=== PATIENT | male | born 1955 | race Caucasian/White ===

== ENCOUNTER 2017-07-29 06:36 | Day surgery (SDC) | payer OTHER ==
[~2017-07-29 06:36] MED LIST: Lactated Ringers 1,000 ML IV SCH; ceFAZolin 2 GM in Premix Bag 1 BAG IV SCH
[2017-07-29] MEDS ORDERED: fentaNYL 250 MCG/5 ML SDV ONE (07:14)
[2017-07-29] MEDS ORDERED: Lidocaine 2% 5 ML SDV ONE (07:14)
[2017-07-29] MEDS ORDERED: Midazolam 1 MG/ML 2 ML SDV ONE (07:14)
[2017-07-29] MEDS ORDERED: Propofol 200 MG/20 ML SDV ONE ×3 (07:14→09:40)
[2017-07-29] MEDS ORDERED: Bupivacaine 25%/EPINEPHrine/PF 30 ML ONE (07:25)
[2017-07-29] MEDS ORDERED: Bupivacaine 0.5% 30 ML SDV ONE (07:25)
[2017-07-29] MEDS ORDERED: Ketorolac 10 MG Tab PO PRN (08:00)
[2017-07-29] MEDS ORDERED: Acetaminophen/HYDROcodone 325-10 MG Tab PO PRN (08:00)
--- NOTE | 2017-07-29 08:19 | PCM.PREANE ---
Preanesthetic Assessment - Procedure Proposed Procedure: Right shoulder arthroscopic repair of torn rotater cuff - Anesthesia/Transfusion/Family Hx Anesthesia History: No Prior Anesthesia Family History of Anesthesia Reaction: No Transfusion History: No Prior Transfusion(s) Intubation History: Unknown Additional History: hypertension -treated with amlodipine and atenolol - Review of Systems Pulmonary: No Symptoms Cardiovascular: Other (HTN - see above) Gastrointestinal: No Symptoms Neurological: No Symptoms Other: Reports: None - Physical Assessment NPO Status Date: 07/28/17 NPO Status Time: 23:00 O2 Sat by Pulse Oximetry: 95 Respiratory Rate: 14 Vital Signs: Last Vital Signs Temp 98.2 F 07/29/17 06:45 Pulse 62 07/29/17 06:45 Resp 14 07/29/17 06:45 BP 158/70 H 07/29/17 06:45 Pulse Ox 95 07/29/17 06:45 Height: 5 ft 11 in Weight: 200 lb ASA Class: 2 Mental Status: Alert & Oriented x3 Airway Class: Mallampati = 1 Dentition: Reports: Normal Dentition Thyro-Mental Finger Breadths: 3 Mouth Opening Finger Breadths: 3 ROM/Head Extension: Full Lungs: Clear to Auscultation, Normal Respiratory Effort Cardiovascular: Regular Rate, Regular Rhythm, No Murmurs - Allergies Allergies/Adverse Reactions: Allergies Allergy/AdvReac Type Severity Reaction Status Date / Time No Known Allergies Allergy Verified 07/28/17 08:58 - Blood Blood Available: No Product(s) Available: None - Anesthesia Plan Pre-Op Medication Ordered: None Beta Jasson: Atenolol Med Last Dose Date: 07/29/17 Med Last Dose Time: 06:00 - Acknowledgements Anesthesia Type Planned: General Anesthesia, Regional Block (discussed probable interscalene block at end case for post op pain relief) Pt an Appropriate Candidate for the Planned Anesthesia: Yes Alternatives and Risks of Anesthesia Discussed w Pt/Guardian: Yes Pt/Guardian Understands and Agrees with Anesthesia Plan: Yes PreAnesthesia Questionnaire Other HEENT History: wears glasses "at night" Cardiovascular History: Reports: Hypertension Psychiatric History: Reports: ADD Other Psychiatric History: has not taken Adderal for over a month - SUBSTANCE USE Smoking Status *Q: Former Smoker Days Per Week of Alcohol Use: 7 Recreational Drug Use History: Yes - HOME MEDS Home Medications: Home Meds Atenolol 50 mg PO DAILY 07/28/17 [History] Hydrochlorothiazide 50 mg PO DAILY 07/28/17 [History] Losartan [Cozaar] 100 mg PO DAILY 07/28/17 [History] Milk Thistle 150 mg PO DAILY 07/28/17 [History] Multivitamin [Multi-Vitamin Daily] 1 tab PO DAILY 07/28/17 [History] amLODIPine [Norvasc] 10 mg PO DAILY 07/28/17 [History] - CURRENT (IN HOUSE) MEDS Current Meds: Current Medications Hydrocodone Bitart/Acetaminophen (Wayne 325-10 Mg) 1 - 2 tab PO Q4H PRN PRN Reason: Pain Cefazolin Sodium/Dextrose 2 gm (/ Premix) 50 mls @ 100 mls/hr IV [facility] Lactated Ringer's (Ringers, Lactated) 1,000 mls @ 100 mls/hr IV ASDIRECTED [facility] Last Admin: 07/29/17 07:24 Dose: 100 mls/hr Ketorolac Tromethamine (Toradol) 10 mg PO Q6H PRN PRN Reason: Pain Stop: 08/03/17 08:01 Discontinued Medications Bupivacaine HCl (Marcaine 0.5%) Confirm Administered Dose 30 ml .ROUTE .STK-MED ONE Stop: 07/29/17 07:26 Fentanyl (Sublimaze) Confirm Administered Dose 250 mcg .ROUTE .STK-MED ONE Stop: 07/29/17 07:15 Bupivacaine HCl/Epinephrine Bitart (Sensorc Mpf 0.25%-Epi 1:[id number]) Confirm Administered Dose 30 mls @ as directed .ROUTE .STK-MED ONE Stop: 07/29/17 07:26 Lidocaine (Xylocaine-Mpf 2%) Confirm Administered Dose 10 ml .ROUTE .STK-MED ONE Stop: 07/29/17 07:15 Midazolam HCl (Versed 1 Mg/Ml) Confirm Administered Dose 2 mg .ROUTE .STK-MED ONE Stop: 07/29/17 07:15 Propofol (Diprivan 20 Ml) Confirm Administered Dose 400 mg .ROUTE .STK-MED ONE Stop: 07/29/17 07:15
[2017-07-29] MEDS ORDERED: HYDROmorphone 2 MG/ML Syringe IVPUSH ONE ×2 (09:16→10:21)
[2017-07-29] MEDS ORDERED: fentaNYL 100 MCG/2 ML SDV IVPUSH PRN ×2 (09:16→10:21)
--- NOTE | 2017-07-29 10:03 | PCM.OPNOTE ---
- General Post-Op/Procedure Note Date of Surgery/Procedure: 07/29/17 Operative Procedure(s): R shoulder scope with SAD, debridement of anterior labrum and RTCR Post-Op Diagnosis: R shoulder impingement, degenerative anterior labral tear, RTC tear Anesthesia Technique: General ET Tube Primary Surgeon: Asiya Josue Cabin Crew: Marry Dhaliwal Condition: Good Free Text/Narrative:: #[id number]
--- NOTE | 2017-07-29 10:39 | PCM.SN ---
- Free Text/Narrative Note: At procedures end inter-scalene block done for post operative pain control after betadine x 3. 2 inch # 22 stimuplex needle stimulationg at 6 ma good forearm twitch instilled 40 ml of 1:1 mixture of 20 ml 0.25% Bupivicaine with epinephrine 1:200k and 20 ml 0.5% Bupivicaine without epinephrine. Patient appears comfortable on arrival recovery room with vital signs in normal limits and patient resting.
--- NOTE | 2017-07-29 10:46 | OR ---
SURGEON: Asiya Josue MD DATE OF PROCEDURE: 07/29/2017 PREOPERATIVE DIAGNOSES: 1. Right shoulder impingement syndrome. 2. Right shoulder rotator cuff tear. POSTOPERATIVE DIAGNOSES: 1. Right shoulder impingement syndrome. 2. Right shoulder rotator cuff tear. 3. Right shoulder degenerative anterior labral tear. 4. DJD right glenohumeral joint PROCEDURE: Right shoulder arthroscopy with: 1. Subacromial decompression with release of coracoacromial ligament and acromioplasty. 2. Limited debridement of anterior labrum. 3. Arthroscopic rotator cuff repair. MORTGAGE PROCESSOR: Marry Dhaliwal PA-C ANESTHESIA: General. ESTIMATED BLOOD LOSS: 10 mL. TOURNIQUET TIME: 0 minutes. COMPLICATIONS: None. DVT PROPHYLAXIS: PAS boots to bilateral lower extremities. IMPLANTS USED: Two Arthrex 4.5 mm corkscrew anchors (Bio[employer]) and one Arthrex 4.75 mm SwiveLock anchor ([employer]). BRIEF HISTORY: Kadeem is a 62-year-old male, who sustained an acute tear of his rotator cuff following a work-related injury. An MRI did confirm a tear of the rotator cuff. Due to the lack of response to conservative treatment, I did recommend surgical intervention. The risks and goals of the procedure were discussed with the patient and were documented preoperatively. He agreed to proceed. DESCRIPTION OF PROCEDURE: The patient was properly identified and brought to the operating room. He was transferred from the OR cart and placed on the operating room table in supine position. General anesthesia was administered. After adequate anesthesia was obtained, the patient was placed into a beach-chair type position. Care was taken to pad all bony prominences. His head was secured. The right upper extremity was then prepped in standard fashion using ChloraPrep solution. It was then sterilely draped. A time-out was performed to ensure correct site and procedure. Preoperative antibiotics were given. The surgical site had been marked preoperatively. Bony landmarks were identified with a marking pen. Approximately 30 mL of normal saline was introduced into the glenohumeral joint. A posterior portal was then established. Blunt trocar and cannula were introduced into the glenohumeral joint. Camera, inflow, and outflow were assembled. The rotator interval showed mild synovitis. An anterior portal was then established. The subscapularis was visualized and probed. It was found to be intact. No loose bodies were present in the subscapular recess. The anterior labrum did show degenerative tearing. This was resected with electrocautery to a stable remnant. The biceps was then inspected. There did not appear to be any tearing. The biceps was pulled into the joint and no longitudinal tears were noted distally. The attachment of the biceps to the labrum appeared intact with no peel back. The posterior labrum appeared intact. The glenoid was then visualized. No degenerative changes were found. The humeral head was also inspected. There was an area measuring approximately 10 mm x 10 mm over the superior aspect of the humeral head that showed nearly grade 4 chondromalacia. This did not appear to be new injury. The remainder of the humeral head showed the cartilage to be intact. I then extended into the axillary pouch. No loose bodies were identified. Mild synovitis was noted. The rotator cuff was then inspected. The bare area was noted posteriorly as the arm was brought into an abducted and externally rotated position. As I progressed forward, there was a full-thickness tear of the anterior portion of the supraspinatus. The arm was then brought back into a neutral position. Instruments were removed from the glenohumeral joint. Blunt trocar and cannula were then introduced into the subacromial space. A lateral portal was established. Using a combination of electrocautery and shaver, an extensive bursectomy was performed. He did have a large amount of bursal tissue. The coracoacromial ligament was released anteriorly. The acromion appeared to be causing some impingement. The 5.0 mm yusuf was then used to perform an acromioplasty. This provided good decompression of the subacromial space. The rotator cuff was then inspected. There was found to be a full-thickness crescentic tear of the anterior portion of the supraspinatus. A cuff grasper was used to reapproximate the cuff to its footprint and there was no significant tension on the cuff. It was able to easily be pulled to its footprint. The 5.0 mm yusuf was then used to roughen the bony surface just lateral to the articular surface for healing. Two 4.5 mm corkscrew anchors were then placed just lateral to the articular surface. Sutures were then passed through the cuff. The cuff tissue was quite robust and of good quality. After the sutures were passed, the sutures were tied in a [id number] fashion pulling the rotator cuff over to its bony footprint. At the completion, the cuff was reapproximated to the footprint. I felt that an additional lateral row would help with compression of the suture on the cuff and a 4.75 mm SwiveLock anchor was placed laterally. Sutures were incorporated into the SwiveLock and this was positioned. I was then able to probe the right rotator cuff. We had a nearly water tight closure. Instruments were then removed from the shoulder. The portal sites were closed with 3-0 nylon. Xeroform gauze was placed over the wound and a bulky dressing was applied. The patient was placed back into a supine position. At the completion of the case, the patient was turned over to the Anesthesia Department for placement of the interscalene block. ADONAY DOE /[id number] MTDD
--- NOTE | 2017-07-29 11:03 | PCM.POSTAN ---
POST ANESTHESIA ASSESSMENT - MENTAL STATUS Mental Status: Alert, Oriented - RESPIRATORY Respiratory Status: Respiratory Rate WNL, Airway Patent, O2 Saturation Stable - CARDIOVASCULAR CV Status: Pulse Rate WNL, Blood Pressure Stable - GASTROINTESTINAL GI Status: No Symptoms - PAIN Pain Score: 0 (Interscalene block functional. See JKO simple note.) - POST OP HYDRATION Hydration Status: Adequate & Stable
--- NOTE | 2017-07-29 12:03 | PCM48HPAN ---
Post Anesthesia Note - EVALUATION WITHIN 48HRS OF ANESTHETIC Vital Signs in Normal Range: Yes Patient Participated in Evaluation: Yes Respiratory Function Stable: Yes Airway Patent: Yes Cardiovascular Function Stable: Yes Hydration Status Stable: Yes Pain Control Satisfactory: Yes (Interscalene block functional) Nausea and Vomiting Control Satisfactory: Yes Mental Status Recovered: Yes
== END 2017-07-29 13:05 | disposition home or self-care (01) ==
LOC: MW.SDS 06:36
PROVIDERS: ATTEND Orthopaedic Surgery
DX: M75.121 Complete rotator cuff tear or rupture of right shoulder, not specified as traumatic (principal); I10 Essential (primary) hypertension; Z79.899 Other long term (current) drug therapy; Z79.1 Long term (current) use of non-steroidal anti-inflammatories (NSAID); M75.41 Impingement syndrome of right shoulder; M24.111 Other articular cartilage disorders, right shoulder; M19.011 Primary osteoarthritis, right shoulder
CPT/HCPCS: 29826; 29827; 88304; C1713; J2250; J3010; J7120; 01630; J2704

== ENCOUNTER 2017-09-06 03:18 | Inpatient (IN) | payer OTHER ==
[2017-09-06] MEDS ORDERED: Pantoprazole 40 MG Vial IVPUSH ONE (03:26)
[2017-09-06] MEDS ORDERED: Sodium Chloride 0.9% 10 ML Syringe FLUSH PRN (03:28)
[2017-09-06] MEDS ORDERED: Aspirin 81 MG Tab.Chew PO ONE ×2 (03:28→03:30)
[2017-09-06] MEDS ORDERED: Sodium Chloride 0.9% 2.5 ML Syringe FLUSH PRN (03:28)
[2017-09-06] MEDS ORDERED: Nitroglycerin 0.4 MG Tab.SL SL PRN (03:30)
[2017-09-06] MEDS: Nitroglycerin 0.4 MG Tab.SL SL PRN ×2 (03:34→03:39)
--- NOTE | 2017-09-06 03:36 | EDM.PDOC ---
ED HPI GENERAL MEDICAL PROBLEM - General Chief Complaint: Abdominal Pain Stated Complaint: STOMACH PAINS Time Seen by Provider: 09/06/17 03:25 - History of Present Illness INITIAL COMMENTS - FREE TEXT/NARRATIVE: HISTORY AND PHYSICAL: History of present illness: Patient 62-year-old male with a history of hypertension presents with concern about epigastric abdominal discomfort that came on somewhat acutely decorticates regarding shortness of breath there's no radiation of this pain he denies melena hematochezia denies chest pressure or diaphoresis Review of systems: As per history of present illness and below otherwise all systems reviewed and negative. Past medical history: As per history of present illness and as reviewed below otherwise noncontributory. Surgical history: As per history of present illness and as reviewed below otherwise noncontributory. Social history: No reported history of drug or alcohol abuse. Family history: As per history of present illness and as reviewed below otherwise noncontributory. Physical exam: HEENT: Atraumatic, normocephalic, pupils reactive, negative for conjunctival pallor or scleral icterus, mucous membranes moist, throat clear, neck supple, nontender, trachea midline. Lungs: Clear to auscultation, breath sounds equal bilaterally, chest nontender. Heart: S1S2, regular, negative for clicks, rubs, or JVD. Abdomen: Soft, protuberant equivocal tenderness in the epigastrium to deep palpation. Negative for masses or hepatosplenomegaly. Negative for costovertebral tenderness. Pelvis: Stable nontender. Genitourinary: Deferred. Rectal: Deferred. Extremities: Atraumatic, negative for cords or calf pain. Neurovascular unremarkable. Neuro: Awake, alert, oriented. Cranial nerves II through XII unremarkable. Cerebellum unremarkable. Motor and sensory unremarkable throughout. Exam nonfocal. Diagnostics: CBC CMP troponin PT/INR chest x-ray EKG lipase Therapeutics: Protonix 80 mg IV aspirin 324 mg nitroglycerin sublingual Impression: 1 epigastric abdominal pain etiology to be determined Definitive disposition and diagnosis as appropriate pending reevaluation and review of above. Middle Abdomen Pain Score (Numeric/FACES): 8 - Related Data Allergies Allergy/AdvReac Type Severity Reaction Status Date / Time No Known Allergies Allergy Verified 09/06/17 03:27 Home Meds: Home Meds Atenolol 50 mg PO DAILY 07/28/17 [History] Hydrochlorothiazide 50 mg PO DAILY 07/28/17 [History] Losartan [Cozaar] 100 mg PO DAILY 07/28/17 [History] Milk Thistle 150 mg PO DAILY 07/28/17 [History] Multivitamin [Multi-Vitamin Daily] 1 tab PO DAILY 07/28/17 [History] amLODIPine [Norvasc] 10 mg PO DAILY 07/28/17 [History] Acetaminophen/HYDROcodone [[place]rh[place] 325-10 MG] 1 - 2 tab PO Q4H PRN #80 tablet [Rx] Ketorolac [Toradol] 10 mg PO Q6H #20 tablet 07/29/17 [Rx] Past Medical History Other HEENT History: wears glasses "at night" Cardiovascular History: Reports: Hypertension Psychiatric History: Reports: ADD Other Psychiatric History: has not taken Adderal for over a month Social & Family History - Tobacco Use Smoking Status *Q: Former Smoker - Alcohol Use Days Per Week of Alcohol Use: 7 - Recreational Drug Use Recreational Drug Use: Yes Drug Use in Last 12 Months: No ED ROS GENERAL - Review of Systems Review Of Systems: ROS reveals no pertinent complaints other than HPI. ED EXAM, GENERAL - Physical Exam Exam: See Below (See dictated) Course - Vital Signs Last Recorded V/S: Last Vital Signs Temp 36.1 C 09/06/17 05:32 Pulse 77 09/06/17 05:32 Resp 18 09/06/17 05:32 BP 160/74 H 09/06/17 05:32 Pulse Ox 99 09/06/17 05:32 - Orders/Labs/Meds Orders: Active Orders 24 hr Category Date Time Status Cardiac Monitoring [RC] . DIRECTED Care 09/06/17 03:27 Active EKG Documentation Completion [RC] STAT Care 09/06/17 03:28 Active EKG Documentation Completion [RC] STAT Care 09/06/17 04:00 Active Oxygen Therapy, ED [RC] ASDIRECTED Care 09/06/17 03:27 Active Abdomen Pelvis w Cont [CT] Stat Exams 09/06/17 04:00 Taken Chest 1V Frontal [CR] Stat Exams 09/06/17 03:28 Taken Chest w Cont [CT] Stat Exams 09/06/17 04:00 Taken Nitroglycerin [Nitrostat] Med 09/06/17 03:28 Active 0.4 mg SL Q5M PRN Sodium Chloride 0.9% [Normal Saline] 1,000 ml Med 09/06/17 04:53 Active IV STAT Sodium Chloride 0.9% [Saline Flush] Med 09/06/17 03:28 Active 10 ml FLUSH ASDIRECTED PRN Sodium Chloride 0.9% [Saline Flush] Med 09/06/17 03:28 Active 2.5 ml FLUSH ASDIRECTED PRN Saline Lock Insert [OM.PC] Stat Oth 09/06/17 03:27 Ordered Medication Orders Sodium Chloride (Normal Saline) 1,000 mls @ 999 mls/hr IV STAT ONE Stop: 09/06/17 05:53 Last Admin: 09/06/17 05:00 Dose: 999 mls/hr Nitroglycerin (Nitrostat) 0.4 mg SL Q5M PRN PRN Reason: Chest Pain Last Admin: 09/06/17 03:39 Dose: 0.4 mg Admin: 09/06/17 03:34 Dose: 0.4 mg Sodium Chloride (Saline Flush) 10 ml FLUSH ASDIRECTED PRN PRN Reason: Keep Vein Open Last Admin: 09/06/17 03:35 Dose: 10 ml Sodium Chloride (Saline Flush) 2.5 ml FLUSH ASDIRECTED PRN PRN Reason: Keep Vein Open Last Admin: 09/06/17 03:35 Dose: 2.5 ml Labs: Laboratory Tests 09/06/17 09/06/17 09/06/17 Range/Units 03:32 03:32 03:32 WBC 13.31 H (4.0-11.0) K/uL RBC 4.71 (4.50-5.90) M/uL Hgb 15.0 (13.0-17.0) g/dL Hct 42.3 (38.0-50.0) % MCV 89.8 (80.0-98.0) fL MCH 31.8 (27.0-32.0) pg MCHC 35.5 (31.0-37.0) g/dL RDW Std Deviation 41.3 (28.0-62.0) fl RDW Coeff of Randall 13 (11.0-15.0) % Plt Count 370 (150-400) K/uL MPV 9.20 (7.40-12.00) fL Neut % (Auto) 67.5 (48.0-80.0) % Lymph % (Auto) 23.6 (16.0-40.0) % [place] % (Auto) 7.5 (0.0-15.0) % Eos % (Auto) 1.0 (0.0-7.0) % Baso % (Auto) 0.4 (0.0-1.5) % Neut # (Auto) 9.0 H (1.4-5.7) K/uL Lymph # (Auto) 3.1 H (0.6-2.4) K/uL [place] # (Auto) 1.0 H (0.0-0.8) K/uL Eos # (Auto) 0.1 (0.0-0.7) K/uL Baso # (Auto) 0.1 (0.0-0.1) K/uL Nucleated RBC % 0.0 /100WBC Nucleated RBCs # 0 K/uL INR 0.95 (0.86-1.11) Sodium 139 (136-146) mmol/L Potassium 3.1 L (3.5-5.1) mmol/L Chloride 98 (98-110) mmol/L Carbon Dioxide 23 (21-31) mmol/L BUN 26 H (6.0-23.0) mg/dL Creatinine 0.8 (0.6-1.5) mg/dL Est Cr Clr Drug Dosing 96.32 mL/min Estimated GFR (MDRD) > 60.0 ml/min Glucose 137 H (60-110) mg/dL Calcium 9.5 (8.8-10.8) mg/dL Total Bilirubin 0.3 (0.1-1.5) mg/dL AST 47 H (5-40) IU/L ALT 73 H (8-54) IU/L Alkaline Phosphatase 139 (40-150) CK-MB (CK-2) 2.0 (0-6.6) ng/ml Troponin I < 0.10 (0.0-0.29) NG/ML B-Natriuretic Peptide (<100) PG/ML Total Protein 8.4 H (6.0-8.0) g/dL Albumin 4.5 (3.4-4.8) g/dL Globulin 3.9 H (2.0-3.5) g/dL Albumin/Globulin Ratio 1.2 L (1.3-2.8) Lipase (7-80) U/L Urine Color Urine Appearance Urine pH (5.0-8.0) Ur Specific Jal (1.001-1.035) Urine Protein (NEGATIVE) mg/dL Urine Glucose (UA) (NEGATIVE) mg/dL Urine Ketones (NEGATIVE) mg/dL Urine Occult Blood (NEGATIVE) Urine Nitrite (NEGATIVE) Urine Bilirubin (NEGATIVE) Urine Urobilinogen (<2.0) EU/dL Ur Leukocyte Esterase (NEGATIVE) Urine RBC (0-2/HPF) Urine WBC (0-5/HPF) Ur Epithelial Cells (NONE-FEW) Urine Bacteria (NEGATIVE) 09/06/17 09/06/17 09/06/17 Range/Units 03:32 03:32 05:20 WBC (4.0-11.0) K/uL RBC (4.50-5.90) M/uL Hgb (13.0-17.0) g/dL Hct (38.0-50.0) % MCV (80.0-98.0) fL MCH (27.0-32.0) pg MCHC (31.0-37.0) g/dL RDW Std Deviation (28.0-62.0) fl RDW Coeff of Randall (11.0-15.0) % Plt Count (150-400) K/uL MPV (7.40-12.00) fL Neut % (Auto) (48.0-80.0) % Lymph % (Auto) (16.0-40.0) % [place] % (Auto) (0.0-15.0) % Eos % (Auto) (0.0-7.0) % Baso % (Auto) (0.0-1.5) % Neut # (Auto) (1.4-5.7) K/uL Lymph # (Auto) (0.6-2.4) K/uL [place] # (Auto) (0.0-0.8) K/uL Eos # (Auto) (0.0-0.7) K/uL Baso # (Auto) (0.0-0.1) K/uL Nucleated RBC % /100WBC Nucleated RBCs # K/uL INR (0.86-1.11) Sodium (136-146) mmol/L Potassium (3.5-5.1) mmol/L Chloride (98-110) mmol/L Carbon Dioxide (21-31) mmol/L BUN (6.0-23.0) mg/dL Creatinine (0.6-1.5) mg/dL Est Cr Clr Drug Dosing mL/min Estimated GFR (MDRD) ml/min Glucose (60-110) mg/dL Calcium (8.8-10.8) mg/dL Total Bilirubin (0.1-1.5) mg/dL AST (5-40) IU/L ALT (8-54) IU/L Alkaline Phosphatase (40-150) CK-MB (CK-2) (0-6.6) ng/ml Troponin I (0.0-0.29) NG/ML B-Natriuretic Peptide 104 H (<100) PG/ML Total Protein (6.0-8.0) g/dL Albumin (3.4-4.8) g/dL Globulin (2.0-3.5) g/dL Albumin/Globulin Ratio (1.3-2.8) Lipase 18 (7-80) U/L Urine Color YELLOW Urine Appearance CLEAR Urine pH 7.0 (5.0-8.0) Ur Specific Jal 1.010 (1.001-1.035) Urine Protein NEGATIVE (NEGATIVE) mg/dL Urine Glucose (UA) NEGATIVE (NEGATIVE) mg/dL Urine Ketones NEGATIVE (NEGATIVE) mg/dL Urine Occult Blood TRACE-LYSED (NEGATIVE) Urine Nitrite NEGATIVE (NEGATIVE) Urine Bilirubin NEGATIVE (NEGATIVE) Urine Urobilinogen 0.2 (<2.0) EU/dL Ur Leukocyte Esterase NEGATIVE (NEGATIVE) Urine RBC 0-1 (0-2/HPF) Urine WBC 0-1 (0-5/HPF) Ur Epithelial Cells NOT SEEN (NONE-FEW) Urine Bacteria RARE (NEGATIVE) Meds: Medications Generic Name Dose Route Start Last Admin Trade Name Freq PRN Reason Stop Dose Admin Sodium Chloride 1,000 mls @ 999 mls/hr 09/06/17 04:53 09/06/17 05:00 Normal Saline IV 09/06/17 05:53 999 mls/hr STAT ONE Administration Nitroglycerin 0.4 mg 09/06/17 03:28 09/06/17 03:39 Nitrostat SL 0.4 mg Q5M PRN Administration Chest Pain Sodium Chloride 10 ml 09/06/17 03:28 09/06/17 03:35 Saline Flush FLUSH 10 ml ASDIRECTED PRN Administration Keep Vein Open Sodium Chloride 2.5 ml 09/06/17 03:28 09/06/17 03:35 Saline Flush FLUSH 2.5 ml ASDIRECTED PRN Administration Keep Vein Open Discontinued Medications Generic Name Dose Route Start Last Admin Trade Name Shadi PRN Reason Stop Dose Admin Aspirin 324 mg 09/06/17 03:28 09/06/17 03:35 Aspirin PO 09/06/17 03:29 324 mg ONETIME ONE Administration Aspirin 324 mg 09/06/17 03:30 09/06/17 03:56 Aspirin PO 09/06/17 03:31 Not Given ONETIME ONE Al Hydroxide/Mg Hydroxide 15 0 ml 09/06/17 04:59 09/06/17 05:03 ml/ Metoclopramide HCl 5 mg/ PO 09/06/17 05:00 1 each Lidocaine HCl 5 ml ONETIME ONE Administration Morphine Sulfate 2 mg 09/06/17 03:44 09/06/17 04:00 Morphine IVPUSH 09/06/17 03:45 2 mg ONETIME ONE Administration Morphine Sulfate 2 mg 09/06/17 04:43 09/06/17 04:47 Morphine IVPUSH 09/06/17 04:44 2 mg ONETIME ONE Administration Nitroglycerin 0.4 mg 09/06/17 03:30 Nitrostat SL Q5M PRN Chest Pain Ondansetron HCl 4 mg 09/06/17 03:44 09/06/17 03:58 Zofran IVPUSH 09/06/17 03:45 4 mg ONETIME ONE Administration Pantoprazole Sodium 80 mg 09/06/17 03:26 09/06/17 03:35 Protonix Iv IVPUSH 09/06/17 03:27 80 mg .BOLUS ONE Administration Departure - Departure Time of Disposition: 05:40 Disposition: Refer to Observation Condition: Good Clinical Impression: Abdominal pain - Discharge Information Forms: ED Department Discharge - My Orders Last 24 Hours: My Active Orders 09/06/17 03:27 Cardiac Monitoring [RC] . DIRECTED Oxygen Therapy, ED [RC] ASDIRECTED Saline Lock Insert [OM.PC] Stat 09/06/17 03:28 EKG Documentation Completion [RC] STAT Chest 1V Frontal [CR] Stat Nitroglycerin [Nitrostat] 0.4 mg SL Q5M PRN Sodium Chloride 0.9% [Saline Flush] 10 ml FLUSH ASDIRECTED PRN Sodium Chloride 0.9% [Saline Flush] 2.5 ml FLUSH ASDIRECTED PRN 09/06/17 04:00 EKG Documentation Completion [RC] STAT Abdomen Pelvis w Cont [CT] Stat Chest w Cont [CT] Stat 09/06/17 04:53 Sodium Chloride 0.9% [Normal Saline] 1,000 ml IV STAT - Assessment/Plan Last 24 Hours: My Active Orders 09/06/17 03:27 Cardiac Monitoring [RC] . DIRECTED Oxygen Therapy, ED [RC] ASDIRECTED Saline Lock Insert [OM.PC] Stat 09/06/17 03:28 EKG Documentation Completion [RC] STAT Chest 1V Frontal [CR] Stat Nitroglycerin [Nitrostat] 0.4 mg SL Q5M PRN Sodium Chloride 0.9% [Saline Flush] 10 ml FLUSH ASDIRECTED PRN Sodium Chloride 0.9% [Saline Flush] 2.5 ml FLUSH ASDIRECTED PRN 09/06/17 04:00 EKG Documentation Completion [RC] STAT Abdomen Pelvis w Cont [CT] Stat Chest w Cont [CT] Stat 09/06/17 04:53 Sodium Chloride 0.9% [Normal Saline] 1,000 ml IV STAT
[2017-09-06] MEDS ORDERED: Morphine 2 MG/ML Syringe IVPUSH ONE ×2 (03:44→04:43)
[2017-09-06] MEDS ORDERED: Ondansetron 4 MG/2 ML SDV IVPUSH ONE (03:44)
[2017-09-06 04:13] LABS: CHLORIDE,CL 98 mmol/L (98-110); SODIUM,NA 139 mmol/L (136-146)
[2017-09-06] MEDS ORDERED: Sodium Chloride 0.9% 1,000 ML IV ONE (04:53)
[2017-09-06] MEDS ORDERED: Alum Hydrox/Mag Hydrox/Simeth 15 ML, Metoclopramide 5 MG, Lidocaine 2% 5 ML PO ONE ×3 (04:59)
[2017-09-06] MEDS: HYDROmorphone 1 MG/ML Syringe IM ONE ×2 (05:55→05:58)
[2017-09-06] MEDS ORDERED: HYDROmorphone 1 MG/ML Syringe IV ONE (05:57)
[2017-09-06] MEDS ORDERED: Iopamidol 755 MG/ML 500 ML Multipack Bottle IVPUSH STA (06:10)
[2017-09-06] MEDS ORDERED: Morphine 10 MG/ML Syringe IVPUSH PRN (06:10)
--- NOTE | 2017-09-06 07:00 | PCM.HP ---
H&P History of Present Illness - General Date of Service: 09/06/17 Admit Problem/Dx: Admission Diagnosis/Problem Admission Diagnosis/Problem Abdominal pain - History of Present Illness Initial Comments - Free Text/Narative: 62-year-old male presenting to the emergency department with chief complaint of epigastric pain starting last evening with past medical history of hypertension. Patient states that last evening he had a hamburger for dinner and then around midnight began having sharp constant epigastric pain. He did take Pepto-Bismol as well as 6 [place] which did not help. He did not feel nauseated but then forced himself to vomit. He found no relief after vomiting. Secondary to this he went to the emergency department around 2:30 AM this morning. States that he continued to have this epigastric pain without radiation throughout his stay in the emergency department until he was given morphine which helped some but in a few minutes the pain returned. States then that they gave him Dilaudid which seemed to help much better but he is still having epigastric pain at this time of 5-6 out of 10. He reports no associated nausea, diarrhea, chills, fever , shortness of breath, chest pain, palpitations, or sore throat. He denies any bloody stool or dark tarry stool. He has never had an EGD done but states that he did have heartburn in the past but not on a daily basis. He takes no medication for this. He has had no abdominal surgery but does have some mild right upper quadrant pain. He has a past medical history of hypertension and was recently started on medications after he was seen by Dr. Sanders, orthopedic surgeon, for preoperative evaluation for suspected right shoulder rotator cuff tear. He is currently controlled on current medications. He sees Dr. Galeano as his PCP. Patient is a former smoker but not current. He does consume alcohol to help him sleep. States that on a nightly basis it "depends" on how much he drinks. He drinks Blake Valdovinos. In the emergency department: CBC revealed leukocytosis of 13 K, hypokalemia 3.1, elevated liver enzymes AST at 47 and ALT at 73 with normal total bili, mildly elevated BNP at 104, normal lipase, and unremarkable UA. Chest x-ray showed no acute cardiopulmonary disease however on ED physicians inspection there was a widened mediastinum so CT of the chest was performed showing no acute infiltrate, no visualized pulmonary emboli, small lymph nodes in the mediastinum without significant lymphadenopathy. There was fatty infiltration of the liver. CT abdomen and pelvis revealed fatty infiltration of the liver, no evidence of bowel obstruction, diverticular changes of the colon without evidence of diverticulitis. No evidence of acute appendicitis, and small gallstones with fluid filled gallbladder. Patient admitted for abdominal pain. Middle Abdomen Pain Score (Numeric/FACES): 8 - Related Data Allergies/Adverse Reactions: Allergies Allergy/AdvReac Type Severity Reaction Status Date / Time No Known Allergies Allergy Verified 09/06/17 03:27 Home Medications: Home Meds Atenolol 50 mg PO DAILY 07/28/17 [History] Hydrochlorothiazide 50 mg PO DAILY 07/28/17 [History] Losartan [Cozaar] 100 mg PO DAILY 07/28/17 [History] Milk Thistle 150 mg PO DAILY 07/28/17 [History] Multivitamin [Multi-Vitamin Daily] 1 tab PO DAILY 07/28/17 [History] amLODIPine [Norvasc] 10 mg PO DAILY 07/28/17 [History] Acetaminophen/HYDROcodone [[place] 325-10 MG] 1 - 2 tab PO Q4H PRN #80 tablet [Rx] Ketorolac [Toradol] 10 mg PO Q6H #20 tablet 07/29/17 [Rx] Past Medical History Other HEENT History: wears glasses "at night" Cardiovascular History: Reports: Hypertension Psychiatric History: Reports: ADD Other Psychiatric History: has not taken Adderal for over a month - Infectious Disease History Infectious Disease History: Reports: Chicken Pox - Past Surgical History Musculoskeletal Surgical History: Reports: Shoulder Surgery Social & Family History - Tobacco Use Smoking Status *Q: Former Smoker Years of Tobacco use: 27 Packs/Tins Daily: 1 Used Tobacco, but Quit: Yes Month Tobacco Last Used: 5 years ago - Caffeine Use Caffeine Use: Reports: None - Alcohol Use Days Per Week of Alcohol Use: 3 Number of Drinks Per Day: 3 Total Drinks Per Week: 9 - Recreational Drug Use Recreational Drug Use: No Drug Use in Last 12 Months: No H&P Review of Systems - Review of Systems: Review Of Systems: See Below General: Denies: Fever, Chills, Malaise, Weakness, Fatigue HEENT: Denies: Headaches, Sore Throat Pulmonary: Denies: Shortness of Breath, Wheezing, Pleuritic Chest Pain, Cough, Sputum Cardiovascular: Denies: Chest Pain, Palpitations, Edema Gastrointestinal: Reports: Abdominal Pain, Vomiting. Denies: Black Stool, Bloody Stool, Diarrhea, Distension, Hematemesis, Nausea Genitourinary: Denies: Dysuria Musculoskeletal: Denies: Leg Pain Skin: Denies: Cyanosis Psychiatric: Denies: Confusion Neurological: Denies: Confusion, Dizziness, Headache Hematologic/Lymphatic: Denies: Anemia Exam - Exam Exam: See Below - Vital Signs Vital Signs: Last Vital Signs Temp 97 F 09/06/17 05:32 Pulse 77 09/06/17 05:32 Resp 18 09/06/17 05:32 BP 160/74 H 09/06/17 05:32 Pulse Ox 99 09/06/17 05:32 Weight: 99.79 kg - Exam Quality Assessment: DVT Prophylaxis General: Alert, Oriented, Cooperative HEENT: Conjunctiva Clear, EACs Clear, EOMI, Hearing Intact, Mucosa Moist & [place] , Nares Patent, Normal Nasal Septum, Posterior Pharynx Clear, PERRLA Neck: Supple, Trachea Midline, 2 Lungs: Clear to Auscultation, Normal Respiratory Effort Cardiovascular: Regular Rate, Regular Rhythm, Normal S1, Normal S2, Systolic Murmur GI/Abdominal Exam: Normal Bowel Sounds, Soft, No Distention, No Mass, Tender ( Epigastric and RUQ), Hepatomegaly. No: Distended, Guarding, Rigid, Rebound Back Exam: Normal Inspection Extremities: Normal Inspection, Non-Tender, No Pedal Edema, Normal Capillary Refill Peripheral Pulses: 2+: Radial (L), Radial (R), Posterior Tibial (L), Posterior Tibial (R), Dorsalis Pedis (L), Dorsalis Pedis (R) Skin: Warm, Dry, Intact Neurological: Cranial Nerves Intact Neuro Extensive - Mental Status: Alert, Oriented x3, Normal Mood/Affect, Normal Cognition Neuro Extensive - Motor, Sensory, Reflexes: CN II-XII Intact Psychiatric: Alert, Normal Affect, Normal Mood - Patient Data Result Diagrams: 09/06/17 03:32 09/06/17 03:32 *Q Meaningful Use (ADM) - VTE *Q VTE Criteria *Q: - Stroke *Q Stroke Criteria *Q: - AMI *Q AMI Criteria *Q: - Problem List (1) Hypertension SNOMED Code(s): 12522968 ICD Code: I10 - ESSENTIAL (PRIMARY) HYPERTENSION Status: Acute Current Visit: Yes (2) Hypokalemia SNOMED Code(s): 97699490 ICD Code: E87.6 - HYPOKALEMIA Status: Acute Current Visit: Yes (3) Elevated liver enzymes SNOMED Code(s): 645917630 ICD Code: R74.8 - ABNORMAL LEVELS OF OTHER SERUM ENZYMES Status: Acute Current Visit: Yes (4) Abdominal pain SNOMED Code(s): 41828844 ICD Code: R10.9 - UNSPECIFIED ABDOMINAL PAIN Status: Acute Current Visit : Yes Problem List Initiated/Reviewed/Updated: Yes Orders Last 24hrs: Active Orders 24 hr Category Date Time Status Telemetry Monitoring [Cardiac Monitoring] [RC] . Care 09/06/17 05:55 Active DIRECTED NPO [Nothing Per Oral Diet] [DIET] Diet 09/06/17 Breakfast Active TROPONIN I [CHEM] Q6H Lab 09/06/17 09:32 Ordered TROPONIN I [CHEM] Q6H Lab 09/06/17 15:32 Ordered Morphine Med 09/06/17 06:10 Active 4 mg IVPUSH Q2H PRN Medication Orders Morphine Sulfate (Morphine) 4 mg IVPUSH Q2H PRN PRN Reason: Pain Last Admin: 09/06/17 06:43 Dose: 4 mg Nitroglycerin (Nitrostat) 0.4 mg SL Q5M PRN PRN Reason: Chest Pain Last Admin: 09/06/17 03:39 Dose: 0.4 mg Admin: 09/06/17 03:34 Dose: 0.4 mg Sodium Chloride (Saline Flush) 10 ml FLUSH ASDIRECTED PRN PRN Reason: Keep Vein Open Last Admin: 09/06/17 03:35 Dose: 10 ml Sodium Chloride (Saline Flush) 2.5 ml FLUSH ASDIRECTED PRN PRN Reason: Keep Vein Open Last Admin: 09/06/17 03:35 Dose: 2.5 ml Assessment/Plan Comment:: 62-year-old male admitted 09/06/17 for abdominal pain suspect gastritis found to have cholelithiasis, hypokalemia, and elevated LFTs with past medical history of hypertension. Abdominal pain: Suspect gastritis however patient does have some right upper quadrant pain and evidence of cholelithiasis on CT. Will get a abdominal ultrasound keep the patient nothing by mouth at this time. We'll give IV Protonix, Hemoccult, and place patient on Cipro and Flagyl secondary to leukocytosis of 13 K. We'll treat with IV morphine first with Dilaudid if morphine does not help. May consider surgery consult once more information gathered. Hypokalemia: 3.1 in the emergency department. Will replace with 40 KCl through IV solution. Elevated LFTs: AST 47, ALT 73 normal total bili. Most likely secondary to his alcohol consumption however he did have cholelithiasis on CT. Will monitor and get a right upper quadrant ultrasound. Hypertension: Currently stable we'll restart home medications as patient's status improves. VTE proph: SCD, Heparin. Dispo: 1-2 days pending.
[2017-09-06] MEDS ORDERED: Ondansetron 4 MG/2 ML SDV IVPUSH PRN (09:07)
[2017-09-06] MEDS ORDERED: Sodium Chloride 0.9% with KCl 1,000 ML IV SCH ×3 (09:34→09:45)
[2017-09-06] MEDS: HYDROmorphone 1 MG/ML Syringe IVPUSH PRN ×7 (09:50→23:14)
[2017-09-06] MEDS: Heparin Sodium 5,000 Units/ML Vial SUBCUT SCH ×2 (09:57→16:14)
[2017-09-06] MEDS ORDERED: Pantoprazole 40 MG Vial IVPUSH SCH (10:00)
[2017-09-06] MEDS: Ciprofloxacin in D5W 400 MG in Premix Bag 1 BAG IV SCH ×4 (10:30→21:41)
[2017-09-06] MEDS: metroNIDAZOLE/Normal Saline 500 MG in Premix Bag 1 BAG IV SCH ×2 (12:39→17:01)
[2017-09-06] MEDS: Pantoprazole 40 MG Vial IVPUSH SCH ×2 (16:14→21:41)
--- NOTE | 2017-09-06 16:24 | PCM.SN ---
- Free Text/Narrative Note: Dr. Rodriguez, surgery, consulted and did see patient. Plan for EGD tomorrow. Okay to feed tonight soft diet and start carafate.
[2017-09-06] MEDS ORDERED: Morphine 4 MG/ML Syringe IVPUSH PRN (16:30)
--- NOTE | 2017-09-06 16:40 | PCM.CONS ---
H&P History of Present Illness - General Date of Service: 09/06/17 Admit Problem/Dx: Admission Diagnosis/Problem Admission Diagnosis/Problem Abdominal pain Source of Information: Patient History Limitations: Reports: No Limitations - History of Present Illness Initial Comments - Free Text/Narative: Patient is a 62-year-old gentleman who presented to the emergency room earlier this morning complaining of severe epigastric pain. Cardiac workup completed in the emergency room did not reveal any acute cardiac event. Subsequent CT scan of the abdomen and pelvis revealed some very small mediastinal lymph nodes , suggestion of cholelithiasis and no evidence of pneumoperitoneum. He has continued to have epigastric pain during the hospital stay. This has been somewhat responsive to parenteral narcotics. I do note mild elevation of liver enzymes with a normal bilirubin of 0.3. He has been using aspirin on a daily basis secondary to right hip discomfort. He is not sure how much aspirin he has been taking. Onset of Symptoms: Reports: Sudden Symptom Onset Date: 09/05/17 Symptom Onset Time: 22:00 Duration of Symptoms: Reports: Hour(s): Location: Reports: Abdomen Quality: Reports: Ache, Pressure, Sharp Severity: Moderate Improves with: Reports: Rest Worsens with: Reports: None Context: Denies: Sick Contact, Trauma, Travel Associated Symptoms: Reports: No Other Symptoms Middle Abdomen Pain Score (Numeric/FACES): 8 Epigastric Pain Score (Numeric/FACES): 6 - Related Data Allergies/Adverse Reactions: Allergies Allergy/AdvReac Type Severity Reaction Status Date / Time No Known Allergies Allergy Verified 09/06/17 03:27 Home Medications: Home Meds Atenolol 50 mg PO DAILY 07/28/17 [History] Hydrochlorothiazide 50 mg PO DAILY 07/28/17 [History] Losartan [Cozaar] 100 mg PO DAILY 07/28/17 [History] Milk Thistle 150 mg PO DAILY 07/28/17 [History] Multivitamin [Multi-Vitamin Daily] 1 tab PO DAILY 07/28/17 [History] amLODIPine [Norvasc] 10 mg PO DAILY 07/28/17 [History] Acetaminophen/HYDROcodone [[place] 325-10 MG] 1 - 2 tab PO Q4H PRN #80 tablet [Rx] Ketorolac [Toradol] 10 mg PO Q6H #20 tablet 07/29/17 [Rx] Past Medical History Other HEENT History: wears glasses "at night" Cardiovascular History: Reports: Hypertension Psychiatric History: Reports: ADD Other Psychiatric History: has not taken Adderal for over a month - Infectious Disease History Infectious Disease History: Reports: Chicken Pox - Past Surgical History Musculoskeletal Surgical History: Reports: Shoulder Surgery (Right rotator cuff repair) Social & Family History - Tobacco Use Smoking Status *Q: Former Smoker Years of Tobacco use: 27 Packs/Tins Daily: 1 Used Tobacco, but Quit: Yes Month Tobacco Last Used: 5 years ago - Caffeine Use Caffeine Use: Reports: None - Alcohol Use Days Per Week of Alcohol Use: 3 Number of Drinks Per Day: 3 Total Drinks Per Week: 9 - Recreational Drug Use Recreational Drug Use: No Drug Use in Last 12 Months: No H&P Review of Systems - Review of Systems: Review Of Systems: See Below General: Denies: Fever, Chills, Malaise, Weakness, Fatigue, Weight Loss HEENT: Reports: No Symptoms Pulmonary: Denies: Shortness of Breath, Wheezing Cardiovascular: Denies: Chest Pain, Palpitations, PND Gastrointestinal: Reports: Abdominal Pain, Vomiting (3 episodes of self-induced) . Denies: Anorexia, Black Stool, Bloody Stool, Constipation, Diarrhea, Decreased Appetite, Difficulty Swallowing, Hematemesis, Hematochezia, Melena, Nausea Genitourinary: Reports: No Symptoms Musculoskeletal: Reports: Joint Pain (Right hip) Skin: Denies: Cyanosis, Jaundice, Mottled, Pallor, Diaphoresis Psychiatric: Reports: No Symptoms Neurological: Reports: No Symptoms Hematologic/Lymphatic: Reports: No Symptoms Immunologic: Reports: No Symptoms Exam - Exam Exam: See Below - Vital Signs Vital Signs: Last Vital Signs Temp 99.3 F 09/06/17 16:00 Pulse 89 09/06/17 16:00 Resp 14 09/06/17 16:00 BP 170/83 H 09/06/17 16:00 Pulse Ox 94 L 09/06/17 16:00 Weight: 220 lb - Exam Quality Assessment: No: Supplemental Oxygen, Central Line/PICC General: Alert, Oriented, Cooperative, Mild Distress HEENT: Conjunctiva Clear, EACs Clear, Pupils Equal, Pupils Reactive. No: Scleral Icterus Neck: Supple, Trachea Midline Lungs: Clear to Auscultation, Normal Respiratory Effort Cardiovascular: Regular Rate, Regular Rhythm, Systolic Murmur (Grade 2/6). No: Tachycardia GI/Abdominal Exam: Normal Bowel Sounds, Soft, Tender (Mild tenderness in the epigastrium. No right upper quadrant tenderness.). No: No Mass, Distended, Guarding, Rigid, Rebound (Male) Exam: No Hernia Rectal (Males) Exam: Deferred Back Exam: Normal Inspection Extremities: Normal Inspection Skin: Warm, Dry, Intact Neurological: Cranial Nerves Intact Neuro Extensive - Mental Status: Alert, Oriented x3 Psychiatric: Alert, Normal Affect, Normal Mood - Patient Data Lab Results Last 24 hrs: Laboratory Results - last 24 hr 09/06/17 09/06/17 Range/Units 09:33 15:26 Troponin I < 0.10 < 0.10 (0.0-0.29) NG/ML Result Diagrams: 09/06/17 03:32 09/06/17 03:32 Consult PN Assessment/Plan Procedures: Procedures ARTHROSCOP ROTATOR CUFF REPR (07/29/17) MRI JOINT UPR EXTREM W/O DYE (06/02/17) SHOULDER ARTHROSCOPY/SURGERY (07/29/17) TISSUE EXAM BY PATHOLOGIST (07/29/17) X-RAY EXAM OF SHOULDER (06/18/17) (1) Cholelithiasis SNOMED Code(s): 835806242 Code(s): K80.20 - CALCULUS OF GALLBLADDER W/O CHOLECYSTITIS W/O OBSTRUCTION Priority: Medium Current Visit: Yes Qualifiers: Cholelithiasis location: gallbladder Cholecystitis presence: without cholecystitis Biliary obstruction: without biliary obstruction Qualified Code(s): K80.20 - Calculus of gallbladder without cholecystitis without obstruction (2) Epigastric pain SNOMED Code(s): 31937943 Code(s): R10.13 - EPIGASTRIC PAIN Priority: High Current Visit: Yes (3) Abdominal pain SNOMED Code(s): 29414459 Code(s): R10.9 - UNSPECIFIED ABDOMINAL PAIN Priority: High Current Visit : Yes Qualifiers: Abdominal location: epigastric Qualified Code(s): R10.13 - Epigastric pain (4) Elevated liver enzymes SNOMED Code(s): 038693352 Code(s): R74.8 - ABNORMAL LEVELS OF OTHER SERUM ENZYMES Priority: Medium Current Visit: Yes Problem List Initiated/Reviewed/Updated: Yes My Orders Last 24 Hours: My Active Orders 09/06/17 Dinner Nothing Per Oral Diet [DIET] Plan: Esophagogastroduodenoscopy with biopsy. The operative procedure, along with the risks, including, but not limited to, bleeding, perforation, and the need for surgery were discussed with the patient who voices understanding, offers no questions and wishes to proceed. This will be scheduled for September 07.
[2017-09-06] MEDS: Sucralfate Suspension 1 GM/10 ML Cup PO SCH ×2 (17:01→21:41)
[2017-09-07] MEDS: metroNIDAZOLE/Normal Saline 500 MG in Premix Bag 1 BAG IV SCH ×5 (00:53→23:16)
[2017-09-07] MEDS: Heparin Sodium 5,000 Units/ML Vial SUBCUT SCH ×3 (00:57→16:44)
[2017-09-07] MEDS: HYDROmorphone 1 MG/ML Syringe IVPUSH PRN ×9 (01:15→22:11)
[2017-09-07] MEDS: Sodium Chloride 0.9% 1,000 ML IV SCH ×2 (01:29→18:02)
[2017-09-07] MEDS: Sucralfate Suspension 1 GM/10 ML Cup PO SCH ×4 (04:32→22:14)
[2017-09-07 07:13] LABS: CHLORIDE,CL 99 mmol/L (98-110); SODIUM,NA 135 mmol/L (136-146)
[2017-09-07] MEDS: Pantoprazole 40 MG Vial IVPUSH SCH ×2 (08:04→20:11)
[2017-09-07] MEDS: Ciprofloxacin in D5W 400 MG in Premix Bag 1 BAG IV SCH ×4 (08:17→20:18)
--- NOTE | 2017-09-07 08:48 | PCM.PREANE ---
Preanesthetic Assessment - Anesthesia/Transfusion/Family Hx Anesthesia History: Prior Anesthesia Without Reaction (RCR repair 30 days ago R shoulder) Family History of Anesthesia Reaction: No Transfusion History: No Prior Transfusion(s) Intubation History: Unknown - Review of Systems General: No Symptoms Pulmonary: No Symptoms Cardiovascular: No Symptoms Gastrointestinal: Abdominal Pain Neurological: No Symptoms Other: Reports: None - Physical Assessment NPO Status Date: 09/06/17 O2 Sat by Pulse Oximetry: 91 Respiratory Rate: 16 Blood Pressure: 136/69 Vital Signs: Last Vital Signs Temp 37.4 C 09/07/17 08:00 Pulse 98 09/07/17 08:00 Resp 16 09/07/17 08:00 BP 122/71 09/07/17 08:00 Pulse Ox 91 L 09/07/17 08:00 Height: 1.8 m Weight: 99.79 kg ASA Class: 2 Mental Status: Alert & Oriented x3 Airway Class: Mallampati = 2 ROM/Head Extension: Full Lungs: Clear to Auscultation, Normal Respiratory Effort Cardiovascular: Regular Rate, Regular Rhythm - Lab Values: Laboratory Last Values WBC 20.16 K/uL (4.0-11.0) H 09/07/17 06:24 RBC 4.08 M/uL (4.50-5.90) L 09/07/17 06:24 Hgb 12.8 g/dL (13.0-17.0) L 09/07/17 06:24 Hct 37.4 % (38.0-50.0) L 09/07/17 06:24 MCV 91.7 fL (80.0-98.0) 09/07/17 06:24 MCH 31.4 pg (27.0-32.0) 09/07/17 06:24 MCHC 34.2 g/dL (31.0-37.0) 09/07/17 06:24 RDW Std Deviation 42.8 fl (28.0-62.0) 09/07/17 06:24 RDW Coeff of Randall 13 % (11.0-15.0) 09/07/17 06:24 Plt Count 320 K/uL (150-400) 09/07/17 06:24 MPV 9.10 fL (7.40-12.00) 09/07/17 06:24 Neut % (Auto) 80.8 % (48.0-80.0) H 09/07/17 06:24 Lymph % (Auto) 8.5 % (16.0-40.0) L 09/07/17 06:24 [place] % (Auto) 10.5 % (0.0-15.0) 09/07/17 06:24 Eos % (Auto) 0.1 % (0.0-7.0) 09/07/17 06:24 Baso % (Auto) 0.1 % (0.0-1.5) 09/07/17 06:24 Neut # (Auto) 16.3 K/uL (1.4-5.7) H 09/07/17 06:24 Lymph # (Auto) 1.7 K/uL (0.6-2.4) 09/07/17 06:24 [place] # (Auto) 2.1 K/uL (0.0-0.8) H 09/07/17 06:24 Eos # (Auto) 0.0 K/uL (0.0-0.7) 09/07/17 06:24 Baso # (Auto) 0.0 K/uL (0.0-0.1) 09/07/17 06:24 Nucleated RBC % 0.0 /100WBC 09/07/17 06:24 Nucleated RBCs # 0 K/uL 09/07/17 06:24 INR 0.95 (0.86-1.11) 09/06/17 03:32 Sodium 135 mmol/L (136-146) L 09/07/17 06:24 Potassium 3.6 mmol/L (3.5-5.1) 09/07/17 06:24 Chloride 99 mmol/L (98-110) 09/07/17 06:24 Carbon Dioxide 25 mmol/L (21-31) 09/07/17 06:24 BUN 16 mg/dL (6.0-23.0) 09/07/17 06:24 Creatinine 0.7 mg/dL (0.6-1.5) 09/07/17 06:24 Est Cr Clr Drug Dosing 113.55 mL/min 09/07/17 06:24 Estimated GFR (MDRD) > 60.0 ml/min 09/07/17 06:24 Glucose 126 mg/dL (60-110) H 09/07/17 06:24 Calcium 8.9 mg/dL (8.8-10.8) 09/07/17 06:24 Total Bilirubin 0.7 mg/dL (0.1-1.5) 09/07/17 06:24 AST 31 IU/L (5-40) 09/07/17 06:24 ALT 52 IU/L (8-54) 09/07/17 06:24 Alkaline Phosphatase 110 (40-150) 09/07/17 06:24 CK-MB (CK-2) 2.0 ng/ml (0-6.6) 09/06/17 03:32 Troponin I < 0.10 NG/ML (0.0-0.29) 09/06/17 15:26 B-Natriuretic Peptide 104 PG/ML (<100) H 09/06/17 03:32 Total Protein 7.3 g/dL (6.0-8.0) 09/07/17 06:24 Albumin 4.0 g/dL (3.4-4.8) 09/07/17 06:24 Globulin 3.3 g/dL (2.0-3.5) 09/07/17 06:24 Albumin/Globulin Ratio 1.2 (1.3-2.8) L 09/07/17 06:24 Lipase 18 U/L (7-80) 09/06/17 03:32 Urine Color YELLOW 09/06/17 05:20 Urine Appearance CLEAR 09/06/17 05:20 Urine pH 7.0 (5.0-8.0) 09/06/17 05:20 Ur Specific [place] 1.010 (1.001-1.035) 09/06/17 05:20 Urine Protein NEGATIVE mg/dL (NEGATIVE) 09/06/17 05:20 Urine Glucose (UA) NEGATIVE mg/dL (NEGATIVE) 09/06/17 05:20 Urine Ketones NEGATIVE mg/dL (NEGATIVE) 09/06/17 05:20 Urine Occult Blood TRACE-LYSED (NEGATIVE) 09/06/17 05:20 Urine Nitrite NEGATIVE (NEGATIVE) 09/06/17 05:20 Urine Bilirubin NEGATIVE (NEGATIVE) 09/06/17 05:20 Urine Urobilinogen 0.2 EU/dL (<2.0) 09/06/17 05:20 Ur Leukocyte Esterase NEGATIVE (NEGATIVE) 09/06/17 05:20 Urine RBC 0-1 (0-2/HPF) 09/06/17 05:20 Urine WBC 0-1 (0-5/HPF) 09/06/17 05:20 Ur Epithelial Cells NOT SEEN (NONE-FEW) 09/06/17 05:20 Urine Bacteria RARE (NEGATIVE) 09/06/17 05:20 - Allergies Allergies/Adverse Reactions: Allergies Allergy/AdvReac Type Severity Reaction Status Date / Time No Known Allergies Allergy Verified 09/06/17 03:27 - Acknowledgements Anesthesia Type Planned: General Anesthesia Pt an Appropriate Candidate for the Planned Anesthesia: Yes Alternatives and Risks of Anesthesia Discussed w Pt/Guardian: Yes Pt/Guardian Understands and Agrees with Anesthesia Plan: Yes Additional Comments: PMH: htn on atenalol, hctz, cozar and norvasc. Has not taken meds for 3 days. BP normal in hosp. PreAnesthesia Questionnaire Other HEENT History: wears glasses "at night" Cardiovascular History: Reports: Hypertension Psychiatric History: Reports: ADD Other Psychiatric History: has not taken Adderal for over a month - Infectious Disease History Infectious Disease History: Reports: Chicken Pox - Past Surgical History Musculoskeletal Surgical History: Reports: Shoulder Surgery (Right rotator cuff repair) - SUBSTANCE USE Smoking Status *Q: Former Smoker Tobacco Use Within Last Twelve Months: Cigarettes Days Per Week of Alcohol Use: 3 Number of Drinks Per Day: 3 Total Drinks Per Week: 9 Recreational Drug Use History: No - HOME MEDS Home Medications: Home Meds Atenolol 50 mg PO DAILY 07/28/17 [History] Hydrochlorothiazide 50 mg PO DAILY 07/28/17 [History] Losartan [Cozaar] 100 mg PO DAILY 07/28/17 [History] Milk Thistle 150 mg PO DAILY 07/28/17 [History] Multivitamin [Multi-Vitamin Daily] 1 tab PO DAILY 07/28/17 [History] amLODIPine [Norvasc] 10 mg PO DAILY 07/28/17 [History] Acetaminophen/HYDROcodone [Rumsey 325-10 MG] 1 - 2 tab PO Q4H PRN #80 tablet [Rx] Ketorolac [Toradol] 10 mg PO Q6H #20 tablet 07/29/17 [Rx] - CURRENT (IN HOUSE) MEDS Current Meds: Current Medications Heparin Sodium (Porcine) (Heparin Sodium) 5,000 units SUBCUT Q8H [facility] Last Admin: 09/07/17 08:31 Dose: 5,000 units Hydromorphone HCl (Dilaudid) 1 mg IVPUSH Q2H PRN PRN Reason: Pain Last Admin: 09/07/17 07:57 Dose: 1 mg Ciprofloxacin/Dextrose 400 mg/ (Premix) 200 mls @ 200 mls/hr IV Q12H [facility] Last Admin: 09/07/17 08:17 Dose: 200 mls/hr Metronidazole 500 mg/ Premix 100 mls @ 100 mls/hr IV QID [facility] Last Admin: 09/07/17 06:43 Dose: 100 mls/hr Sodium Chloride (Normal Saline) 1,000 mls @ 125 mls/hr IV ASDIRECTED [facility] Last Admin: 09/07/17 01:29 Dose: 125 mls/hr Nitroglycerin (Nitrostat) 0.4 mg SL Q5M PRN PRN Reason: Chest Pain Last Admin: 09/06/17 03:39 Dose: 0.4 mg Ondansetron HCl (Zofran) 4 mg IVPUSH Q4H PRN PRN Reason: Nausea Pantoprazole Sodium (Protonix Iv) 80 mg IVPUSH BID [facility] Last Admin: 09/07/17 08:04 Dose: 80 mg Sodium Chloride (Saline Flush) 10 ml FLUSH ASDIRECTED PRN PRN Reason: Keep Vein Open Last Admin: 09/06/17 03:35 Dose: 10 ml Sodium Chloride (Saline Flush) 2.5 ml FLUSH ASDIRECTED PRN PRN Reason: Keep Vein Open Last Admin: 09/06/17 03:35 Dose: 2.5 ml Sucralfate (Carafate) 1 gm PO Q6H [facility] Last Admin: 09/07/17 04:32 Dose: Not Given Discontinued Medications Aspirin (Aspirin) 324 mg PO ONETIME ONE Stop: 09/06/17 03:29 Last Admin: 09/06/17 03:35 Dose: 324 mg Aspirin (Aspirin) 324 mg PO ONETIME ONE Stop: 09/06/17 03:31 Last Admin: 09/06/17 03:56 Dose: Not Given Al Hydroxide/Mg Hydroxide 15 ml/ Metoclopramide HCl 5 mg/Lidocaine HCl 5 ml 0 ml PO ONETIME ONE Stop: 09/06/17 05:00 Last Admin: 09/06/17 05:03 Dose: 1 each Hydromorphone HCl (Dilaudid) 1 mg IM ONETIME ONE Stop: 09/06/17 05:45 Last Admin: 09/06/17 05:58 Dose: Not Given Hydromorphone HCl (Dilaudid) 1 mg IV ONETIME ONE Stop: 09/06/17 05:58 Last Admin: 09/06/17 05:58 Dose: 1 mg Hydromorphone HCl (Dilaudid) 0.5 mg IVPUSH Q2H PRN PRN Reason: Pain (severe 7-10) Last Admin: 09/06/17 15:03 Dose: 0.5 mg Sodium Chloride (Normal Saline) 1,000 mls @ 999 mls/hr IV STAT ONE Stop: 09/06/17 05:53 Last Admin: 09/06/17 05:00 Dose: 999 mls/hr Potassium Chloride 40 meq/ (Sodium Chloride) 1,020 mls @ 125 mls/hr IV ASDIRECTED [facility] Stop: 09/06/17 17:25 Last Admin: 09/06/17 11:26 Dose: Not Given Potassium Chloride/Sodium Chloride (Normal Saline With 40 Meq Kcl) 1,000 mls @ 125 mls/hr IV ASDIRECTED [facility] Stop: 09/06/17 17:14 Last Admin: 09/06/17 11:27 Dose: Not Given Potassium Chloride/Sodium Chloride (Normal Saline With 40 Meq Kcl) 1,000 mls @ 125 mls/hr IV ASDIRECTED [facility] Stop: 09/06/17 17:44 Last Admin: 09/06/17 10:30 Dose: 125 mls/hr Iopamidol (Isovue Multipack-370 (76%)) 120 ml IVPUSH ONETIME STA Stop: 09/06/17 06:11 Last Admin: 09/06/17 06:14 Dose: 120 ml Morphine Sulfate (Morphine) 2 mg IVPUSH ONETIME ONE Stop: 09/06/17 03:45 Last Admin: 09/06/17 04:00 Dose: 2 mg Morphine Sulfate (Morphine) 2 mg IVPUSH ONETIME ONE Stop: 09/06/17 04:44 Last Admin: 09/06/17 04:47 Dose: 2 mg Morphine Sulfate (Morphine) 4 mg IVPUSH Q2H PRN PRN Reason: Pain Last Admin: 09/06/17 06:43 Dose: 4 mg Morphine Sulfate (Morphine) 4 mg IVPUSH Q2H PRN PRN Reason: Pain Nitroglycerin (Nitrostat) 0.4 mg SL Q5M PRN PRN Reason: Chest Pain Ondansetron HCl (Zofran) 4 mg IVPUSH ONETIME ONE Stop: 09/06/17 03:45 Last Admin: 09/06/17 03:58 Dose: 4 mg Pantoprazole Sodium (Protonix Iv) 80 mg IVPUSH .BOLUS ONE Stop: 09/06/17 03:27 Last Admin: 09/06/17 03:35 Dose: 80 mg Pantoprazole Sodium (Protonix Iv) 40 mg IVPUSH BID [facility] Last Admin: 09/06/17 10:01 Dose: 40 mg
[2017-09-07] MEDS ORDERED: fentaNYL 100 MCG/2 ML SDV ONE (13:51)
[2017-09-07] MEDS ORDERED: Midazolam 1 MG/ML 2 ML SDV ONE (13:51)
[2017-09-07] MEDS ORDERED: Propofol 200 MG/20 ML SDV ONE (13:52)
--- NOTE | 2017-09-07 15:05 | PCM.PN ---
- General Info Date of Service: 09/07/17 Admission Dx/Problem (Free Text): Still complaining of epigastric abdominal pain. He tells me that it is decently controlled with the pain medication that he has been receiving which includes Dilaudid. He is scheduled for an EGD with biopsy with Dr. Rodriguez, surgery. He denies any nausea or vomiting. Denies any diarrhea or constipation. No fevers chills chest pain palpitations. - Review of Systems General: Reports: Other (See history of present illness) - Patient Data Vitals - Most Recent: Last Vital Signs Temp 36.6 C 09/07/17 12:00 Pulse 101 H 09/07/17 12:00 Resp 18 09/07/17 12:00 BP 136/78 09/07/17 12:00 Pulse Ox 94 L 09/07/17 12:00 Weight - Most Recent: 99.79 kg I&O - Last 24 Hours: Intake & Output 09/06/17 09/07/17 09/07/17 22:59 06:59 14:59 Intake Total 330 2100 Output Total 1400 1050 Balance -1070 1050 Lab Results Last 24 Hours: Laboratory Results - last 24 hr 09/06/17 09/07/17 09/07/17 Range/Units 15:26 06:24 06:24 WBC 20.16 H (4.0-11.0) K/uL RBC 4.08 L (4.50-5.90) M/uL Hgb 12.8 L (13.0-17.0) g/dL Hct 37.4 L (38.0-50.0) % MCV 91.7 (80.0-98.0) fL MCH 31.4 (27.0-32.0) pg MCHC 34.2 (31.0-37.0) g/dL RDW Std Deviation 42.8 (28.0-62.0) fl RDW Coeff of Randall 13 (11.0-15.0) % Plt Count 320 (150-400) K/uL MPV 9.10 (7.40-12.00) fL Neut % (Auto) 80.8 H (48.0-80.0) % Lymph % (Auto) 8.5 L (16.0-40.0) % [place] % (Auto) 10.5 (0.0-15.0) % Eos % (Auto) 0.1 (0.0-7.0) % Baso % (Auto) 0.1 (0.0-1.5) % Neut # (Auto) 16.3 H (1.4-5.7) K/uL Lymph # (Auto) 1.7 (0.6-2.4) K/uL [place] # (Auto) 2.1 H (0.0-0.8) K/uL Eos # (Auto) 0.0 (0.0-0.7) K/uL Baso # (Auto) 0.0 (0.0-0.1) K/uL Nucleated RBC % 0.0 /100WBC Nucleated RBCs # 0 K/uL Sodium 135 L (136-146) mmol/L Potassium 3.6 (3.5-5.1) mmol/L Chloride 99 (98-110) mmol/L Carbon Dioxide 25 (21-31) mmol/L BUN 16 (6.0-23.0) mg/dL Creatinine 0.7 (0.6-1.5) mg/dL Est Cr Clr Drug Dosing 113.55 mL/min Estimated GFR (MDRD) > 60.0 ml/min Glucose 126 H (60-110) mg/dL Calcium 8.9 (8.8-10.8) mg/dL Total Bilirubin 0.7 (0.1-1.5) mg/dL AST 31 (5-40) IU/L ALT 52 (8-54) IU/L Alkaline Phosphatase 110 (40-150) Troponin I < 0.10 (0.0-0.29) NG/ML Total Protein 7.3 (6.0-8.0) g/dL Albumin 4.0 (3.4-4.8) g/dL Globulin 3.3 (2.0-3.5) g/dL Albumin/Globulin Ratio 1.2 L (1.3-2.8) Med Orders - Current: Current Medications Heparin Sodium (Porcine) (Heparin Sodium) 5,000 units SUBCUT Q8H [facility] Last Admin: 09/07/17 08:31 Dose: 5,000 units Hydromorphone HCl (Dilaudid) 1 mg IVPUSH Q2H PRN PRN Reason: Pain Last Admin: 09/07/17 12:23 Dose: 1 mg Ciprofloxacin/Dextrose 400 mg/ (Premix) 200 mls @ 200 mls/hr IV Q12H [facility] Last Admin: 09/07/17 08:17 Dose: 200 mls/hr Metronidazole 500 mg/ Premix 100 mls @ 100 mls/hr IV QID [facility] Last Admin: 09/07/17 11:40 Dose: 100 mls/hr Sodium Chloride (Normal Saline) 1,000 mls @ 125 mls/hr IV ASDIRECTED [facility] Last Admin: 09/07/17 01:29 Dose: 125 mls/hr Nitroglycerin (Nitrostat) 0.4 mg SL Q5M PRN PRN Reason: Chest Pain Last Admin: 09/06/17 03:39 Dose: 0.4 mg Ondansetron HCl (Zofran) 4 mg IVPUSH Q4H PRN PRN Reason: Nausea Pantoprazole Sodium (Protonix Iv) 80 mg IVPUSH BID [facility] Last Admin: 09/07/17 08:04 Dose: 80 mg Sodium Chloride (Saline Flush) 10 ml FLUSH ASDIRECTED PRN PRN Reason: Keep Vein Open Last Admin: 09/06/17 03:35 Dose: 10 ml Sodium Chloride (Saline Flush) 2.5 ml FLUSH ASDIRECTED PRN PRN Reason: Keep Vein Open Last Admin: 09/06/17 03:35 Dose: 2.5 ml Sucralfate (Carafate) 1 gm PO Q6H [facility] Last Admin: 09/07/17 10:15 Dose: 1 gm Discontinued Medications Aspirin (Aspirin) 324 mg PO ONETIME ONE Stop: 09/06/17 03:29 Last Admin: 09/06/17 03:35 Dose: 324 mg Aspirin (Aspirin) 324 mg PO ONETIME ONE Stop: 09/06/17 03:31 Last Admin: 09/06/17 03:56 Dose: Not Given Al Hydroxide/Mg Hydroxide 15 ml/ Metoclopramide HCl 5 mg/Lidocaine HCl 5 ml 0 ml PO ONETIME ONE Stop: 09/06/17 05:00 Last Admin: 09/06/17 05:03 Dose: 1 each Fentanyl (Sublimaze) Confirm Administered Dose 100 mcg .ROUTE .STK-MED ONE Stop: 09/07/17 13:52 Hydromorphone HCl (Dilaudid) 1 mg IM ONETIME ONE Stop: 09/06/17 05:45 Last Admin: 09/06/17 05:58 Dose: Not Given Hydromorphone HCl (Dilaudid) 1 mg IV ONETIME ONE Stop: 09/06/17 05:58 Last Admin: 09/06/17 05:58 Dose: 1 mg Hydromorphone HCl (Dilaudid) 0.5 mg IVPUSH Q2H PRN PRN Reason: Pain (severe 7-10) Last Admin: 09/06/17 15:03 Dose: 0.5 mg Sodium Chloride (Normal Saline) 1,000 mls @ 999 mls/hr IV STAT ONE Stop: 09/06/17 05:53 Last Admin: 09/06/17 05:00 Dose: 999 mls/hr Potassium Chloride 40 meq/ (Sodium Chloride) 1,020 mls @ 125 mls/hr IV ASDIRECTED [facility] Stop: 09/06/17 17:25 Last Admin: 09/06/17 11:26 Dose: Not Given Potassium Chloride/Sodium Chloride (Normal Saline With 40 Meq Kcl) 1,000 mls @ 125 mls/hr IV ASDIRECTED [facility] Stop: 09/06/17 17:14 Last Admin: 09/06/17 11:27 Dose: Not Given Potassium Chloride/Sodium Chloride (Normal Saline With 40 Meq Kcl) 1,000 mls @ 125 mls/hr IV ASDIRECTED [facility] Stop: 09/06/17 17:44 Last Admin: 09/06/17 10:30 Dose: 125 mls/hr Acetaminophen (Ofirmev) Confirm Administered Dose 100 mls @ as directed IV .STK- MED ONE Stop: 09/07/17 14:25 Iopamidol (Isovue Multipack-370 (76%)) 120 ml IVPUSH ONETIME STA Stop: 09/06/17 06:11 Last Admin: 09/06/17 06:14 Dose: 120 ml Midazolam HCl (Versed 1 Mg/Ml) Confirm Administered Dose 2 mg .ROUTE .STK-MED ONE Stop: 09/07/17 13:52 Morphine Sulfate (Morphine) 2 mg IVPUSH ONETIME ONE Stop: 09/06/17 03:45 Last Admin: 09/06/17 04:00 Dose: 2 mg Morphine Sulfate (Morphine) 2 mg IVPUSH ONETIME ONE Stop: 09/06/17 04:44 Last Admin: 09/06/17 04:47 Dose: 2 mg Morphine Sulfate (Morphine) 4 mg IVPUSH Q2H PRN PRN Reason: Pain Last Admin: 09/06/17 06:43 Dose: 4 mg Morphine Sulfate (Morphine) 4 mg IVPUSH Q2H PRN PRN Reason: Pain Nitroglycerin (Nitrostat) 0.4 mg SL Q5M PRN PRN Reason: Chest Pain Ondansetron HCl (Zofran) 4 mg IVPUSH ONETIME ONE Stop: 09/06/17 03:45 Last Admin: 09/06/17 03:58 Dose: 4 mg Pantoprazole Sodium (Protonix Iv) 80 mg IVPUSH .BOLUS ONE Stop: 09/06/17 03:27 Last Admin: 09/06/17 03:35 Dose: 80 mg Pantoprazole Sodium (Protonix Iv) 40 mg IVPUSH BID [facility] Last Admin: 09/06/17 10:01 Dose: 40 mg Propofol (Diprivan 20 Ml) Confirm Administered Dose 200 mg .ROUTE .STK-MED ONE Stop: 09/07/17 13:53 - Exam General: Alert, Oriented Neck: Supple Lungs: Clear to Auscultation, Normal Respiratory Effort Cardiovascular: Regular Rate, Regular Rhythm GI/Abdominal Exam: Normal Bowel Sounds, Soft Back Exam: Normal Inspection, Full Range of Motion. No: CVA Tenderness (L), CVA Tenderness (R) Extremities: Normal Inspection, Normal Range of Motion, No Pedal Edema Peripheral Pulses: 3+: Posterior Tibial (L), Posterior Tibial (R) Skin: Warm Psy/Mental Status: Alert, Normal Affect, Normal Mood - Problem List Review Problem List Initiated/Reviewed/Updated: Yes - Plan Plan:: Assessment: #1. Abdominal pain with suspected gastritis vs. esophagitis #2. Cholelithiasis without cholecystitis noted on CT scan with abdominal ultrasound pending #3. Worsening leukocytosis #4. Elevated LFTs-resolved #5. Hypokalemia resolved Plan: #1. Follow-up on EGD. Continue IV fluids. #2. Continue antibiotic coverage as is with ciprofloxacin and Flagyl. We may need to adjust based on EGD findings. #3. Continue pain control for now. #4. Follow-up on abdominal ultrasound
--- NOTE | 2017-09-07 15:19 | PCM.OPNOTE ---
- General Post-Op/Procedure Note Date of Surgery/Procedure: 09/07/17 Operative Procedure(s): EGD w/ biopsy Pre Op Diagnosis: Epigastric pain Post-Op Diagnosis: Acute gastritis Anesthesia Technique: MAC (ASA II) Primary Surgeon: Michele Rodriguez Condition: Fair Free Text/Narrative:: Intake & Output 09/07/17 09/07/17 09/07/17 03:59 11:59 19:59 Intake Total 1300 800 Output Total 1050 Balance 1300 -250 Dictation 122117 CPT CODE 70907
--- NOTE | 2017-09-07 15:30 | PCM48HPAN ---
Post Anesthesia Note - EVALUATION WITHIN 48HRS OF ANESTHETIC Vital Signs in Normal Range: Yes Patient Participated in Evaluation: Yes Respiratory Function Stable: Yes Airway Patent: Yes Cardiovascular Function Stable: Yes Hydration Status Stable: Yes Pain Control Satisfactory: Yes Nausea and Vomiting Control Satisfactory: Yes Mental Status Recovered: Yes
--- NOTE | 2017-09-07 16:10 | PCM.POSTAN ---
POST ANESTHESIA ASSESSMENT - MENTAL STATUS Mental Status: Alert, Oriented - RESPIRATORY Respiratory Status: Respiratory Rate WNL, Airway Patent, O2 Saturation Stable - CARDIOVASCULAR CV Status: Pulse Rate WNL, Blood Pressure Stable - GASTROINTESTINAL GI Status: No Symptoms - POST OP HYDRATION Hydration Status: Adequate & Stable
--- NOTE | 2017-09-07 18:35 | CR ---
EXAM DATE: 09/06/17 PATIENT'S AGE: 62 Patient: MICHI KMAARA Facility: [place], [place] Site . Site : 1955 Study: XRay Chest [id number]/21/2018 3:49:00 AM Ordering Physician: Svitlana Young Final Report: INDICATION: SOB, CP TECHNIQUE: Chest 1 view COMPARISON: None FINDINGS: Cardiovascular and mediastinum: Heart size and vasculature are normal in caliber and appearance. Mediastinum is within normal limits. Lungs and pleural space: No focal consolidation. No sign of pleural effusion. No pneumothorax. Bones and soft tissues: No significant findings. IMPRESSION: No acute cardiopulmonary disease Dictated by Rosendo Ragsdale MD @ 09/06/2017 4:28:31 AM Dictated by: Rosendo Ragsdale MD @ 09/06/2017 04:28:40 (Electronic Signature) Report Signed by Proxy. [facility]
--- NOTE | 2017-09-07 18:39 | CT ---
EXAM DATE: 09/06/17 PATIENT'S AGE: 62 Patient: MICHI KAMARA Facility: [place], [place] Site . Site : 1955 Study: CT Chest With [id number]/21/2018 4:47:46 AM Ordering Physician: Svitlana Young Final Report: INDICATION: General pain SOB INDICATION: Generalized pain and shortness of breath. TECHNIQUE: 3 mm axial imaging has been performed through the chest. Sagittal and coronal reconstructions have been obtained. FINDINGS: Soft tissue windows demonstrate small mediastinal lymph nodes without significant lymphadenopathy. No significant pleural or pericardial fluid is seen. The lung windows demonstrate no acute infiltrate. Some mild linear density in the right lung base is identified consistent with some atelectasis. There is no central pulmonary emboli identified. No evidence for aortic dissection. There is fatty infiltration of the liver. IMPRESSION: No acute infiltrate is seen. No visualized pulmonary emboli is identified. There are small lymph nodes in the mediastinum without significant lymphadenopathy. Fatty infiltration of the liver is noted. Dictated by Javy Valladares MD @ 09/06/2017 5:14:26 AM Dictated by: Javy Valladares MD @ 09/06/2017 05:14:30 (Electronic Signature) Report Signed by Proxy. AMEENA
--- NOTE | 2017-09-07 18:40 | CT ---
EXAM DATE: 09/06/17 PATIENT'S AGE: 62 Patient: MICHI KAMARA Facility: [place], [place] Site . Site : 1955 Study: CT Abdomen/Pelvis With [id number]/21/2018 4:48:12 AM Ordering Physician: Svitlana Young Final Report: INDICATION: General pain SOB INDICATION: Generalized pain. TECHNIQUE: 3 mm axial imaging has been performed through the abdomen and pelvis after nonionic IV and oral contrast. Sagittal and coronal reconstructions have been obtained. FINDINGS: There is fatty infiltration of the liver with some relative sparing adjacent to the gallbladder. The gallbladder is fluid filled. There are small gallstone appears to be present. No obvious inflammatory changes seen. The spleen, pancreas, bilateral adrenal glands are within normal limits. The kidneys demonstrate symmetric enhancement bilaterally. No hydronephrosis is seen bilaterally. No ureteric stones are seen. The retrocrural region and retroperitoneum demonstrate no significant lymphadenopathy. Pelvis demonstrates no significant free fluid. Prostate is moderately prominent. No evidence for bowel obstruction. Some diverticular changes of the left colon is noted without evidence for diverticulitis. The appendix is within normal limits. Small mesenteric lymph nodes are identified without significant lymphadenopathy. IMPRESSION: Fatty infiltration of the liver is identified. No evidence for bowel obstruction. Diverticular changes of the colon are identified without evidence for diverticulitis. No evidence for acute appendicitis. Small gallstone is noted. Dictated by Javy Valladares MD @ 09/06/2017 5:19:24 AM Dictated by: Javy Valladares MD @ 09/06/2017 05:19:36 (Electronic Signature) Report Signed by Proxy. AMEENA
--- NOTE | 2017-09-07 19:01 | US ---
EXAM DATE: 09/06/17 PATIENT'S AGE: 62 Patient: MICHI KAMARA Facility: [place], [place] Site . Site : 1955 Study: US Abdomen [id number]/[id number] 11:58:03 AM Ordering Physician: Gonzalo Zhao Final Report: INDICATION: Abdominal pain. TECHNIQUE: Limited abdominal ultrasound. COMPARISON: CT scan of the abdomen and pelvis same date. FINDINGS: Gallbladder: Some increased echoes are present in the gallbladder fundus. It is difficult to determine if these demonstrate shadowing. Mild tenderness on palpation. Liver: Echogenicity. No focal mass. Common bile duct is normal caliber 6 mm. Right kidney: Normal 12 cm. Pancreas: Limited visualization. No fluid collection. IMPRESSION: 1. Possible nonshadowing stones or sludge in the neck of the gallbladder however this is difficult to visualize. No ductal dilatation. 2. Echogenic parenchyma suggesting fatty infiltration of the liver. Exam technique is limited due to extensive sonographic attenuation from fatty infiltration of an enlarged liver. 3. Borderline tenderness of the gallbladder. Dictated by Donovan Platt MD @ Sep 06 2017 1:52PM (Electronic Signature) Report Signed by Proxy. AMEENA
[2017-09-07] MEDS: Losartan 50 MG Tab PO SCH (19:38)
[2017-09-07] MEDS: Atenolol 50 MG Tab PO SCH (19:38)
[2017-09-07] MEDS: Hydrochlorothiazide 25 MG Tab PO SCH (19:38)
[2017-09-07] MEDS: amLODIPine 5 MG Tab PO SCH (19:39)
--- NOTE | 2017-09-07 20:44 | OR ---
SURGEON: Michele Rodriguez M.D. DATE OF PROCEDURE: 09/07/2017 OPERATION PERFORMED: Esophagogastroduodenoscopy with biopsy. ANESTHESIA: MAC. ASA CLASSIFICATION: 2. PREOPERATIVE DIAGNOSES: 1. Persistent epigastric pain. 2. History of aspirin use. POSTOPERATIVE DIAGNOSIS: Acute gastritis without ulceration. DESCRIPTION OF PROCEDURE: The patient was taken to the endoscopy room and positioned on the endoscopy table in the supine position. Time-out was called for appropriate identification of the patient and procedure. Monitored anesthesia care was provided. A bite block was placed between the patient's teeth. The gastroscope was inserted through the bite block into the oropharynx and advanced without difficulty through the esophagus and stomach into the duodenum where examination was carried out in a retrograde fashion. The duodenum showed no acute inflammatory changes or ulcerations. The gastroscope was withdrawn into the stomach which does show an acute gastritis. Again, no ulcerations were seen. Biopsies of the antrum were obtained. The gastroscope was retroflexed to visualize the proximal stomach. No significant hiatal hernia was noted. No tumors were identified. The gastroscope was then straightened and slowly withdrawn aspirating the stomach as scope was withdrawn. The GE junction was well defined and shows no acute inflammatory changes. The esophagus demonstrated good contractility. No mid or proximal lesions were identified. The vocal cords had briefly been visualized as the scope was withdrawn and noted to move symmetrically. They were not visualized upon withdrawal. The gastroscope was then removed with the patient having tolerated the procedure well. He was taken to the recovery room in stable condition. SENAIT / BROOK /[id number]
[2017-09-07] MEDS: Acetaminophen 325 MG Tab PO PRN (23:18)
[2017-09-08] MEDS: HYDROmorphone 1 MG/ML Syringe IVPUSH PRN ×8 (00:14→21:06)
[2017-09-08] MEDS: Heparin Sodium 5,000 Units/ML Vial SUBCUT SCH ×3 (00:19→16:54)
[2017-09-08] MEDS: Acetaminophen 325 MG Tab PO PRN (03:34)
[2017-09-08] MEDS: Sucralfate Suspension 1 GM/10 ML Cup PO SCH ×4 (03:34→23:29)
[2017-09-08] MEDS: metroNIDAZOLE/Normal Saline 500 MG in Premix Bag 1 BAG IV SCH ×2 (06:08→11:46)
[2017-09-08 06:24] LABS: CHLORIDE,CL 96 mmol/L (98-110); SODIUM,NA 133 mmol/L (136-146)
[2017-09-08] MEDS ORDERED: Potassium Chloride 20 MEQ Tab.ER PO ONE (08:04)
[2017-09-08] MEDS: amLODIPine 5 MG Tab PO SCH (08:37)
[2017-09-08] MEDS: Atenolol 50 MG Tab PO SCH (08:38)
[2017-09-08] MEDS: Losartan 50 MG Tab PO SCH (08:39)
[2017-09-08] MEDS: Pantoprazole 40 MG Vial IVPUSH SCH ×2 (08:40→21:10)
[2017-09-08] MEDS: Hydrochlorothiazide 25 MG Tab PO SCH (08:40)
[2017-09-08] MEDS: Ciprofloxacin in D5W 400 MG in Premix Bag 1 BAG IV SCH ×2 (08:49)
[2017-09-08] MEDS: Sodium Chloride 0.9% 1,000 ML IV SCH ×2 (10:46→21:03)
--- NOTE | 2017-09-08 14:59 | US ---
EXAMINATION: Right upper quadrant ultrasound HISTORY: Pain COMPARISON: 09/06/2017 TECHNIQUE: Grayscale and color Doppler images obtained of the right upper quadrant. FINDINGS: The pancreas is not well characterized. The liver is increased in echogenicity. No focal he patic mass identified. No bladder wall thickness is borderline at 3 mm. Trace pericholecystic fluid. No shadowing gallstones identified. The common bile duct measures 5 mm. The right kidney measures 12. 9 cm [id number] without evidence of hydronephrosis. IMPRESSION: 1. Borderline gallbladder wall thickness with a mild pericholecystic fluid. No gallstones identified, however correlate clinically for cholecystitis. 2. Fatty infiltration of the liver.
[2017-09-08] MEDS: Piperacillin/Tazobactam 4.5 GM in Sodium Chloride 0.9% 100 ML IV SCH ×2 (16:55→23:29)
--- NOTE | 2017-09-08 17:20 | PCM.PN ---
- General Info Date of Service: 09/08/17 Admission Dx/Problem (Free Text): patient continues to complain of abdominal pain upon palpation. he tells me that when he is sitting and when I'm not palpating his abdomen, his abdomen is not all that painful. It is well controlled with the Dilaudid that he has been getting. However, states that the pain is mainly in the right upper quadrant. Denies any fevers or chills overnight. No new complaints.Laboratory results indicate a worsening leukocytosis. - Review of Systems General: Reports: Other (see history of present illness) - Patient Data Vitals - Most Recent: Last Vital Signs Temp 37.1 C 09/08/17 12:00 Pulse 83 09/08/17 12:00 Resp 18 09/08/17 12:00 BP 138/62 09/08/17 12:00 Pulse Ox 92 L 09/08/17 09:00 Weight - Most Recent: 99.79 kg I&O - Last 24 Hours: Intake & Output 09/08/17 09/08/17 09/08/17 06:59 14:59 22:59 Intake Total 1100 1970 Output Total 350 Balance 1100 1620 Med Orders - Current: Current Medications Acetaminophen (Tylenol) 650 mg PO Q4H PRN PRN Reason: Pain Last Admin: 09/08/17 03:34 Dose: 650 mg Amlodipine Besylate (Norvasc) 10 mg PO DAILY [facility] Last Admin: 09/08/17 08:37 Dose: 10 mg Atenolol (Tenormin) 50 mg PO DAILY [facility] Last Admin: 09/08/17 08:38 Dose: 50 mg Heparin Sodium (Porcine) (Heparin Sodium) 5,000 units SUBCUT Q8H [facility] Last Admin: 09/08/17 16:54 Dose: 5,000 units Hydrochlorothiazide (Hydrochlorothiazide) 50 mg PO DAILY [facility] Last Admin: 09/08/17 08:40 Dose: 50 mg Hydromorphone HCl (Dilaudid) 1 mg IVPUSH Q3H PRN PRN Reason: Pain Last Admin: 09/08/17 14:57 Dose: 1 mg Sodium Chloride (Normal Saline) 1,000 mls @ 125 mls/hr IV ASDIRECTED [facility] Last Admin: 09/08/17 10:46 Dose: 125 mls/hr Piperacillin Sod/Tazobactam (Sod 4.5 gm/ Sodium Chloride) 100 mls @ 100 mls/hr IV Q6H [facility] Last Admin: 09/08/17 16:55 Dose: 100 mls/hr Losartan Potassium (Cozaar) 100 mg PO DAILY [facility] Last Admin: 09/08/17 08:39 Dose: 100 mg Nitroglycerin (Nitrostat) 0.4 mg SL Q5M PRN PRN Reason: Chest Pain Last Admin: 09/06/17 03:39 Dose: 0.4 mg Ondansetron HCl (Zofran) 4 mg IVPUSH Q4H PRN PRN Reason: Nausea Pantoprazole Sodium (Protonix Iv) 80 mg IVPUSH BID [facility] Last Admin: 09/08/17 08:40 Dose: 80 mg Sodium Chloride (Saline Flush) 10 ml FLUSH ASDIRECTED PRN PRN Reason: Keep Vein Open Last Admin: 09/06/17 03:35 Dose: 10 ml Sodium Chloride (Saline Flush) 2.5 ml FLUSH ASDIRECTED PRN PRN Reason: Keep Vein Open Last Admin: 09/06/17 03:35 Dose: 2.5 ml Sucralfate (Carafate) 1 gm PO Q6H [facility] Last Admin: 09/08/17 16:54 Dose: 1 gm Discontinued Medications Aspirin (Aspirin) 324 mg PO ONETIME ONE Stop: 09/06/17 03:29 Last Admin: 09/06/17 03:35 Dose: 324 mg Aspirin (Aspirin) 324 mg PO ONETIME ONE Stop: 09/06/17 03:31 Last Admin: 09/06/17 03:56 Dose: Not Given Al Hydroxide/Mg Hydroxide 15 ml/ Metoclopramide HCl 5 mg/Lidocaine HCl 5 ml 0 ml PO ONETIME ONE Stop: 09/06/17 05:00 Last Admin: 09/06/17 05:03 Dose: 1 each Fentanyl (Sublimaze) Confirm Administered Dose 100 mcg .ROUTE .STK-MED ONE Stop: 09/07/17 13:52 Hydromorphone HCl (Dilaudid) 1 mg IM ONETIME ONE Stop: 09/06/17 05:45 Last Admin: 09/06/17 05:58 Dose: Not Given Hydromorphone HCl (Dilaudid) 1 mg IV ONETIME ONE Stop: 09/06/17 05:58 Last Admin: 09/06/17 05:58 Dose: 1 mg Hydromorphone HCl (Dilaudid) 0.5 mg IVPUSH Q2H PRN PRN Reason: Pain (severe 7-10) Last Admin: 09/06/17 15:03 Dose: 0.5 mg Hydromorphone HCl (Dilaudid) 1 mg IVPUSH Q2H PRN PRN Reason: Pain Last Admin: 09/08/17 08:41 Dose: 1 mg Sodium Chloride (Normal Saline) 1,000 mls @ 999 mls/hr IV STAT ONE Stop: 09/06/17 05:53 Last Admin: 09/06/17 05:00 Dose: 999 mls/hr Potassium Chloride 40 meq/ (Sodium Chloride) 1,020 mls @ 125 mls/hr IV ASDIRECTED [facility] Stop: 09/06/17 17:25 Last Admin: 09/06/17 11:26 Dose: Not Given Ciprofloxacin/Dextrose 400 mg/ (Premix) 200 mls @ 200 mls/hr IV Q12H [facility] Last Admin: 09/08/17 08:49 Dose: 200 mls/hr Metronidazole 500 mg/ Premix 100 mls @ 100 mls/hr IV QID [facility] Last Admin: 09/08/17 11:46 Dose: 100 mls/hr Potassium Chloride/Sodium Chloride (Normal Saline With 40 Meq Kcl) 1,000 mls @ 125 mls/hr IV ASDIRECTED [facility] Stop: 09/06/17 17:14 Last Admin: 09/06/17 11:27 Dose: Not Given Potassium Chloride/Sodium Chloride (Normal Saline With 40 Meq Kcl) 1,000 mls @ 125 mls/hr IV ASDIRECTED [facility] Stop: 09/06/17 17:44 Last Admin: 09/06/17 10:30 Dose: 125 mls/hr Acetaminophen (Ofirmev) Confirm Administered Dose 100 mls @ as directed IV .STK- MED ONE Stop: 09/07/17 14:25 Iopamidol (Isovue Multipack-370 (76%)) 120 ml IVPUSH ONETIME STA Stop: 09/06/17 06:11 Last Admin: 09/06/17 06:14 Dose: 120 ml Midazolam HCl (Versed 1 Mg/Ml) Confirm Administered Dose 2 mg .ROUTE .STK-MED ONE Stop: 09/07/17 13:52 Morphine Sulfate (Morphine) 2 mg IVPUSH ONETIME ONE Stop: 09/06/17 03:45 Last Admin: 09/06/17 04:00 Dose: 2 mg Morphine Sulfate (Morphine) 2 mg IVPUSH ONETIME ONE Stop: 09/06/17 04:44 Last Admin: 09/06/17 04:47 Dose: 2 mg Morphine Sulfate (Morphine) 4 mg IVPUSH Q2H PRN PRN Reason: Pain Last Admin: 09/06/17 06:43 Dose: 4 mg Morphine Sulfate (Morphine) 4 mg IVPUSH Q2H PRN PRN Reason: Pain Nitroglycerin (Nitrostat) 0.4 mg SL Q5M PRN PRN Reason: Chest Pain Ondansetron HCl (Zofran) 4 mg IVPUSH ONETIME ONE Stop: 09/06/17 03:45 Last Admin: 09/06/17 03:58 Dose: 4 mg Pantoprazole Sodium (Protonix Iv) 80 mg IVPUSH .BOLUS ONE Stop: 09/06/17 03:27 Last Admin: 09/06/17 03:35 Dose: 80 mg Pantoprazole Sodium (Protonix Iv) 40 mg IVPUSH BID [facility] Last Admin: 09/06/17 10:01 Dose: 40 mg Potassium Chloride (Klor-Con M20) 40 meq PO ONETIME ONE Stop: 09/08/17 08:05 Last Admin: 09/08/17 08:36 Dose: 40 meq Propofol (Diprivan 20 Ml) Confirm Administered Dose 200 mg .ROUTE .STK-MED ONE Stop: 09/07/17 13:53 - Exam General: Alert, Oriented, Cooperative Neck: Supple Lungs: Clear to Auscultation, Normal Respiratory Effort Cardiovascular: Regular Rate, Regular Rhythm GI/Abdominal Exam: Normal Bowel Sounds, Other (rebound tenderness in the right upper quadrant. No organomegaly.) Extremities: Normal Inspection, Non-Tender Peripheral Pulses: 3+: Posterior Tibial (L), Posterior Tibial (R) Psy/Mental Status: Alert, Normal Affect - Problem List Review Problem List Initiated/Reviewed/Updated: Yes - My Orders Last 24 Hours: My Active Orders 09/08/17 11:18 HYDROmorphone [Dilaudid] 1 mg IVPUSH Q3H PRN 09/08/17 16:45 Piperacillin/Tazobactam [Piperacil-Tazobact] 4.5 gm Sodium Chloride 0.9% [ Normal Saline] 100 ml IV Q6H 09/09/17 Breakfast Low Fat Diet [DIET] - Plan Plan:: Assessment: #1. right upper quadrant abdominal pain #2. gallbladder wall thickening noted on abdominal ultrasound of the right upper quadrant #3. Worsening leukocytosis #4. Elevated LFTs #5. Hypokalemia Plan: #1. given the patient's localized right upper quadrant tenderness, combined with the leukocytosis that appears to be increasing, clinical suspicion for acute cholecystitis is high. I touched base with Dr. Rodriguez, surgery, who recommended that we get a repeat right upper quadrant ultrasound to assess the possible etiology of the pain. Interpretation by radiology indicates minimal gallbladder wall thickening with no gallstones present. I discussed the case again with the surgeon who states that given that the patient has been experiencing abdominal pain for longer than 72 hours, his likelihood for needing an open cholecystectomy versus laparoscopic and high. For that reason, he advised that he would rather just treat medically with antibiotics and pain control and to closely monitor the white blood cell count. Given that the patient has been on ciprofloxacin and Flagyl since he's been here and not showing a clinical response, we changed antibiotics to Zosyn and discontinued the previous 2. We will recheck the white count tomorrow morning and proceed with what that shows.
[2017-09-09] MEDS: Heparin Sodium 5,000 Units/ML Vial SUBCUT SCH ×3 (00:42→17:25)
[2017-09-09] MEDS: HYDROmorphone 1 MG/ML Syringe IVPUSH PRN ×2 (00:43→07:38)
[2017-09-09 06:26] LABS: CHLORIDE,CL 98 mmol/L (98-110); SODIUM,NA 138 mmol/L (136-146)
[2017-09-09] MEDS: Sucralfate Suspension 1 GM/10 ML Cup PO SCH ×4 (06:29→22:04)
[2017-09-09] MEDS: Piperacillin/Tazobactam 4.5 GM in Sodium Chloride 0.9% 100 ML IV SCH ×4 (06:30→22:04)
[2017-09-09] MEDS: Sodium Chloride 0.9% 1,000 ML IV SCH (07:12)
[2017-09-09] MEDS ORDERED: Potassium Chloride 20 MEQ Tab.ER PO ONE (08:11)
[2017-09-09] MEDS: Pantoprazole 40 MG Vial IVPUSH SCH ×2 (08:33→20:34)
[2017-09-09] MEDS: Losartan 50 MG Tab PO SCH (08:34)
[2017-09-09] MEDS: Atenolol 50 MG Tab PO SCH (08:34)
[2017-09-09] MEDS: amLODIPine 5 MG Tab PO SCH (08:35)
[2017-09-09] MEDS: Hydrochlorothiazide 25 MG Tab PO SCH (08:35)
[2017-09-09] MEDS: oxyCODONE 5 MG Tab PO PRN ×2 (10:51→17:28)
--- NOTE | 2017-09-09 13:22 | PCM.PN ---
- General Info Date of Service: 09/09/17 Admission Dx/Problem (Free Text): States that his pain is under control. He is adamant about leaving because he states that his pain is under control along with not expressing any fevers or chills. He is worried about the financial cost of his hospital stay. He has no other complaints. - Review of Systems General: Reports: Other (Full review of systems was obtained and was negative) - Patient Data Vitals - Most Recent: Last Vital Signs Temp 36.6 C 09/09/17 12:00 Pulse 78 09/09/17 12:00 Resp 18 09/09/17 12:00 BP 121/60 09/09/17 12:00 Pulse Ox 93 L 09/09/17 12:00 Weight - Most Recent: 99.79 kg I&O - Last 24 Hours: Intake & Output 09/08/17 09/09/17 09/09/17 22:59 06:59 14:59 Intake Total 2440 450 Output Total 350 635 Balance 2090 -185 Lab Results Last 24 Hours: Laboratory Results - last 24 hr 09/09/17 09/09/17 Range/Units 04:17 04:17 WBC 17.94 H (4.0-11.0) K/uL RBC 3.78 L (4.50-5.90) M/uL Hgb 11.9 L (13.0-17.0) g/dL Hct 34.2 L (38.0-50.0) % MCV 90.5 (80.0-98.0) fL MCH 31.5 (27.0-32.0) pg MCHC 34.8 (31.0-37.0) g/dL RDW Std Deviation 41.7 (28.0-62.0) fl RDW Coeff of Randall 13 (11.0-15.0) % Plt Count 302 (150-400) K/uL MPV 9.40 (7.40-12.00) fL Neut % (Auto) 78.6 (48.0-80.0) % Lymph % (Auto) 10.4 L (16.0-40.0) % Young % (Auto) 9.4 (0.0-15.0) % Eos % (Auto) 1.4 (0.0-7.0) % Baso % (Auto) 0.2 (0.0-1.5) % Neut # (Auto) 14.1 H (1.4-5.7) K/uL Lymph # (Auto) 1.9 (0.6-2.4) K/uL Young # (Auto) 1.7 H (0.0-0.8) K/uL Eos # (Auto) 0.3 (0.0-0.7) K/uL Baso # (Auto) 0.0 (0.0-0.1) K/uL Nucleated RBC % 0.1 /100WBC Nucleated RBCs # 0 K/uL Sodium 138 (136-146) mmol/L Potassium 3.0 L (3.5-5.1) mmol/L Chloride 98 (98-110) mmol/L Carbon Dioxide 31 (21-31) mmol/L BUN 13 (6.0-23.0) mg/dL Creatinine 0.7 (0.6-1.5) mg/dL Est Cr Clr Drug Dosing 113.55 mL/min Estimated GFR (MDRD) > 60.0 ml/min Glucose 96 (60-110) mg/dL Calcium 8.4 L (8.8-10.8) mg/dL Total Bilirubin 0.7 (0.1-1.5) mg/dL AST 42 H (5-40) IU/L ALT 55 H (8-54) IU/L Alkaline Phosphatase 112 (40-150) Total Protein 6.0 (6.0-8.0) g/dL Albumin 3.4 (3.4-4.8) g/dL Globulin 2.6 (2.0-3.5) g/dL Albumin/Globulin Ratio 1.3 (1.3-2.8) Des Results Last 24 Hours: Microbiology 09/09/17 09:20 Stool Occult Blood (DES) - Final Stool / Feces POSITIVE OCCULT BLOOD Med Orders - Current: Current Medications Acetaminophen (Tylenol) 650 mg PO Q4H PRN PRN Reason: Pain Last Admin: 09/08/17 03:34 Dose: 650 mg Amlodipine Besylate (Norvasc) 10 mg PO DAILY [facility] Last Admin: 09/09/17 08:35 Dose: 10 mg Atenolol (Tenormin) 50 mg PO DAILY [facility] Last Admin: 09/09/17 08:34 Dose: 50 mg Heparin Sodium (Porcine) (Heparin Sodium) 5,000 units SUBCUT Q8H [facility] Last Admin: 09/09/17 08:34 Dose: 5,000 units Hydrochlorothiazide (Hydrochlorothiazide) 50 mg PO DAILY [facility] Last Admin: 09/09/17 08:35 Dose: 50 mg Sodium Chloride (Normal Saline) 1,000 mls @ 125 mls/hr IV ASDIRECTED [facility] Last Admin: 09/09/17 07:12 Dose: 125 mls/hr Piperacillin Sod/Tazobactam (Sod 4.5 gm/ Sodium Chloride) 100 mls @ 100 mls/hr IV Q6H [facility] Last Admin: 09/09/17 10:51 Dose: 100 mls/hr Losartan Potassium (Cozaar) 100 mg PO DAILY [facility] Last Admin: 09/09/17 08:34 Dose: 100 mg Nitroglycerin (Nitrostat) 0.4 mg SL Q5M PRN PRN Reason: Chest Pain Last Admin: 09/06/17 03:39 Dose: 0.4 mg Ondansetron HCl (Zofran) 4 mg IVPUSH Q4H PRN PRN Reason: Nausea Oxycodone HCl (Oxycodone) 10 mg PO Q6H PRN PRN Reason: Pain Last Admin: 09/09/17 10:51 Dose: 10 mg Pantoprazole Sodium (Protonix Iv) 80 mg IVPUSH BID [facility] Last Admin: 09/09/17 08:33 Dose: 80 mg Sodium Chloride (Saline Flush) 10 ml FLUSH ASDIRECTED PRN PRN Reason: Keep Vein Open Last Admin: 09/06/17 03:35 Dose: 10 ml Sodium Chloride (Saline Flush) 2.5 ml FLUSH ASDIRECTED PRN PRN Reason: Keep Vein Open Last Admin: 09/06/17 03:35 Dose: 2.5 ml Sucralfate (Carafate) 1 gm PO Q6H [facility] Last Admin: 09/09/17 10:51 Dose: 1 gm Discontinued Medications Aspirin (Aspirin) 324 mg PO ONETIME ONE Stop: 09/06/17 03:29 Last Admin: 09/06/17 03:35 Dose: 324 mg Aspirin (Aspirin) 324 mg PO ONETIME ONE Stop: 09/06/17 03:31 Last Admin: 09/06/17 03:56 Dose: Not Given Al Hydroxide/Mg Hydroxide 15 ml/ Metoclopramide HCl 5 mg/Lidocaine HCl 5 ml 0 ml PO ONETIME ONE Stop: 09/06/17 05:00 Last Admin: 09/06/17 05:03 Dose: 1 each Fentanyl (Sublimaze) Confirm Administered Dose 100 mcg .ROUTE .STK-MED ONE Stop: 09/07/17 13:52 Hydromorphone HCl (Dilaudid) 1 mg IM ONETIME ONE Stop: 09/06/17 05:45 Last Admin: 09/06/17 05:58 Dose: Not Given Hydromorphone HCl (Dilaudid) 1 mg IV ONETIME ONE Stop: 09/06/17 05:58 Last Admin: 09/06/17 05:58 Dose: 1 mg Hydromorphone HCl (Dilaudid) 0.5 mg IVPUSH Q2H PRN PRN Reason: Pain (severe 7-10) Last Admin: 09/06/17 15:03 Dose: 0.5 mg Hydromorphone HCl (Dilaudid) 1 mg IVPUSH Q2H PRN PRN Reason: Pain Last Admin: 09/08/17 08:41 Dose: 1 mg Hydromorphone HCl (Dilaudid) 1 mg IVPUSH Q3H PRN PRN Reason: Pain Last Admin: 09/09/17 07:38 Dose: 1 mg Sodium Chloride (Normal Saline) 1,000 mls @ 999 mls/hr IV STAT ONE Stop: 09/06/17 05:53 Last Admin: 09/06/17 05:00 Dose: 999 mls/hr Potassium Chloride 40 meq/ (Sodium Chloride) 1,020 mls @ 125 mls/hr IV ASDIRECTED [facility] Stop: 09/06/17 17:25 Last Admin: 09/06/17 11:26 Dose: Not Given Ciprofloxacin/Dextrose 400 mg/ (Premix) 200 mls @ 200 mls/hr IV Q12H [facility] Last Admin: 09/08/17 08:49 Dose: 200 mls/hr Metronidazole 500 mg/ Premix 100 mls @ 100 mls/hr IV QID [facility] Last Admin: 09/08/17 11:46 Dose: 100 mls/hr Potassium Chloride/Sodium Chloride (Normal Saline With 40 Meq Kcl) 1,000 mls @ 125 mls/hr IV ASDIRECTED [facility] Stop: 09/06/17 17:14 Last Admin: 09/06/17 11:27 Dose: Not Given Potassium Chloride/Sodium Chloride (Normal Saline With 40 Meq Kcl) 1,000 mls @ 125 mls/hr IV ASDIRECTED [facility] Stop: 09/06/17 17:44 Last Admin: 09/06/17 10:30 Dose: 125 mls/hr Acetaminophen (Ofirmev) Confirm Administered Dose 100 mls @ as directed IV .STK- MED ONE Stop: 09/07/17 14:25 Iopamidol (Isovue Multipack-370 (76%)) 120 ml IVPUSH ONETIME [facility] Stop: 09/06/17 06:11 Last Admin: 09/06/17 06:14 Dose: 120 ml Midazolam HCl (Versed 1 Mg/Ml) Confirm Administered Dose 2 mg .ROUTE .STK-MED ONE Stop: 09/07/17 13:52 Morphine Sulfate (Morphine) 2 mg IVPUSH ONETIME ONE Stop: 09/06/17 03:45 Last Admin: 09/06/17 04:00 Dose: 2 mg Morphine Sulfate (Morphine) 2 mg IVPUSH ONETIME ONE Stop: 09/06/17 04:44 Last Admin: 09/06/17 04:47 Dose: 2 mg Morphine Sulfate (Morphine) 4 mg IVPUSH Q2H PRN PRN Reason: Pain Last Admin: 09/06/17 06:43 Dose: 4 mg Morphine Sulfate (Morphine) 4 mg IVPUSH Q2H PRN PRN Reason: Pain Nitroglycerin (Nitrostat) 0.4 mg SL Q5M PRN PRN Reason: Chest Pain Ondansetron HCl (Zofran) 4 mg IVPUSH ONETIME ONE Stop: 09/06/17 03:45 Last Admin: 09/06/17 03:58 Dose: 4 mg Pantoprazole Sodium (Protonix Iv) 80 mg IVPUSH .BOLUS ONE Stop: 09/06/17 03:27 Last Admin: 09/06/17 03:35 Dose: 80 mg Pantoprazole Sodium (Protonix Iv) 40 mg IVPUSH BID [facility] Last Admin: 09/06/17 10:01 Dose: 40 mg Potassium Chloride (Klor-Con M20) 40 meq PO ONETIME ONE Stop: 09/08/17 08:05 Last Admin: 09/08/17 08:36 Dose: 40 meq Potassium Chloride (Klor-Con M20) 40 meq PO ONETIME ONE Stop: 09/09/17 08:12 Last Admin: 09/09/17 08:34 Dose: 40 meq Propofol (Diprivan 20 Ml) Confirm Administered Dose 200 mg .ROUTE .STK-MED ONE Stop: 09/07/17 13:53 - Exam General: Alert, Oriented, Cooperative HEENT: Pupils Equal, Pupils Reactive Neck: Supple Lungs: Clear to Auscultation, Normal Respiratory Effort Cardiovascular: Regular Rate GI/Abdominal Exam: Normal Bowel Sounds, Soft, Non-Tender Back Exam: Normal Inspection Extremities: Normal Inspection Skin: Warm Psy/Mental Status: Alert, Normal Affect, Normal Mood - Problem List Review Problem List Initiated/Reviewed/Updated: Yes - My Orders Last 24 Hours: My Active Orders 09/08/17 16:45 Piperacillin/Tazobactam [Piperacil-Tazobact] 4.5 gm Sodium Chloride 0.9% [ Normal Saline] 100 ml IV Q6H 09/09/17 Breakfast Low Fat Diet [DIET] - Plan Plan:: Assessment: #1. right upper quadrant abdominal pain under control #2. Cholecystitis #3. Improving leukocytosis #4. Hypokalemia Plan: #1. Given that the patient was adamant about leaving, we did discuss the necessity of the stay and the risks that he would run if he was to leave. The patient states that he is more concerned about the financial cost of this hospital stay. For that reason we will have quality director and somebody come talk to him about his financial situation. We talked about the importance of continuing IV antibiotics. It looks like after changing his medication to Zosyn and stopping the Flagyl and Cipro, his white blood cell count has responded. We will recheck this in the morning. Surgery has come by and evaluated the patient. They would like the cholecystitis to be medically treated if possible and for the patient to be seen as an outpatient for a cholecystectomy down the road. Patient's Dilaudid will be discontinued as he stated that he is only using it for sleep at this time. Oxycodone 10 mg every 6 was started instead by mouth.
--- NOTE | 2017-09-09 13:53 | PCM.CONSN ---
- General Info Date of Service: 09/09/17 Admission Dx/Problem (Free Text): Epigastric and right upper quadrant pain. Gastritis on endoscopic evaluation. Cholecystitis with cholelithiasis. Functional Status: Reports: Pain Controlled (rated pain a 5 this morning.), Tolerating Diet, Ambulating, Urinating. Denies: New Symptoms - Review of Systems General: Denies: Fever, Weakness, Fatigue HEENT: Reports: No Symptoms Pulmonary: Denies: Shortness of Breath Cardiovascular: Denies: Chest Pain Gastrointestinal: Reports: Abdominal Pain (right upper quadrant), Flatus. Denies: Decreased Appetite, Diarrhea, Difficulty Swallowing, Melena, Nausea, Vomiting Genitourinary: Reports: No Symptoms Musculoskeletal: Reports: No Symptoms Skin: Reports: No Symptoms Neurological: Reports: No Symptoms Psychiatric: Reports: No Symptoms - Patient Data Vitals - Most Recent: Last Vital Signs Temp 97.9 F 09/09/17 12:00 Pulse 78 09/09/17 12:00 Resp 18 09/09/17 12:00 BP 121/60 09/09/17 12:00 Pulse Ox 93 L 09/09/17 12:00 Weight - Most Recent: 220 lb I&O - Last 24 Hours: Intake & Output 09/09/17 09/09/17 09/09/17 03:59 11:59 19:59 Intake Total 570 350 Output Total 635 Balance 570 -285 Lab Results Last 24 Hours: Laboratory Results - last 24 hr 09/09/17 09/09/17 Range/Units 04:17 04:17 WBC 17.94 H (4.0-11.0) K/uL RBC 3.78 L (4.50-5.90) M/uL Hgb 11.9 L (13.0-17.0) g/dL Hct 34.2 L (38.0-50.0) % MCV 90.5 (80.0-98.0) fL MCH 31.5 (27.0-32.0) pg MCHC 34.8 (31.0-37.0) g/dL RDW Std Deviation 41.7 (28.0-62.0) fl RDW Coeff of Randall 13 (11.0-15.0) % Plt Count 302 (150-400) K/uL MPV 9.40 (7.40-12.00) fL Neut % (Auto) 78.6 (48.0-80.0) % Lymph % (Auto) 10.4 L (16.0-40.0) % [place] % (Auto) 9.4 (0.0-15.0) % Eos % (Auto) 1.4 (0.0-7.0) % Baso % (Auto) 0.2 (0.0-1.5) % Neut # (Auto) 14.1 H (1.4-5.7) K/uL Lymph # (Auto) 1.9 (0.6-2.4) K/uL [place] # (Auto) 1.7 H (0.0-0.8) K/uL Eos # (Auto) 0.3 (0.0-0.7) K/uL Baso # (Auto) 0.0 (0.0-0.1) K/uL Nucleated RBC % 0.1 /100WBC Nucleated RBCs # 0 K/uL Sodium 138 (136-146) mmol/L Potassium 3.0 L (3.5-5.1) mmol/L Chloride 98 (98-110) mmol/L Carbon Dioxide 31 (21-31) mmol/L BUN 13 (6.0-23.0) mg/dL Creatinine 0.7 (0.6-1.5) mg/dL Est Cr Clr Drug Dosing 113.55 mL/min Estimated GFR (MDRD) > 60.0 ml/min Glucose 96 (60-110) mg/dL Calcium 8.4 L (8.8-10.8) mg/dL Total Bilirubin 0.7 (0.1-1.5) mg/dL AST 42 H (5-40) IU/L ALT 55 H (8-54) IU/L Alkaline Phosphatase 112 (40-150) Total Protein 6.0 (6.0-8.0) g/dL Albumin 3.4 (3.4-4.8) g/dL Globulin 2.6 (2.0-3.5) g/dL Albumin/Globulin Ratio 1.3 (1.3-2.8) Des Results Last 24 Hours: Microbiology 09/09/17 09:20 Stool Occult Blood (DES) - Final Stool / Feces POSITIVE OCCULT BLOOD Med Orders - Current: Current Medications Acetaminophen (Tylenol) 650 mg PO Q4H PRN PRN Reason: Pain Last Admin: 09/08/17 03:34 Dose: 650 mg Amlodipine Besylate (Norvasc) 10 mg PO DAILY [facility] Last Admin: 09/09/17 08:35 Dose: 10 mg Atenolol (Tenormin) 50 mg PO DAILY [facility] Last Admin: 09/09/17 08:34 Dose: 50 mg Heparin Sodium (Porcine) (Heparin Sodium) 5,000 units SUBCUT Q8H [facility] Last Admin: 09/09/17 08:34 Dose: 5,000 units Hydrochlorothiazide (Hydrochlorothiazide) 50 mg PO DAILY [facility] Last Admin: 09/09/17 08:35 Dose: 50 mg Sodium Chloride (Normal Saline) 1,000 mls @ 125 mls/hr IV ASDIRECTED [facility] Last Admin: 09/09/17 07:12 Dose: 125 mls/hr Piperacillin Sod/Tazobactam (Sod 4.5 gm/ Sodium Chloride) 100 mls @ 100 mls/hr IV Q6H [facility] Last Admin: 09/09/17 10:51 Dose: 100 mls/hr Losartan Potassium (Cozaar) 100 mg PO DAILY [facility] Last Admin: 09/09/17 08:34 Dose: 100 mg Nitroglycerin (Nitrostat) 0.4 mg SL Q5M PRN PRN Reason: Chest Pain Last Admin: 09/06/17 03:39 Dose: 0.4 mg Ondansetron HCl (Zofran) 4 mg IVPUSH Q4H PRN PRN Reason: Nausea Oxycodone HCl (Oxycodone) 10 mg PO Q6H PRN PRN Reason: Pain Last Admin: 09/09/17 10:51 Dose: 10 mg Pantoprazole Sodium (Protonix Iv) 80 mg IVPUSH BID [facility] Last Admin: 09/09/17 08:33 Dose: 80 mg Sodium Chloride (Saline Flush) 10 ml FLUSH ASDIRECTED PRN PRN Reason: Keep Vein Open Last Admin: 09/06/17 03:35 Dose: 10 ml Sodium Chloride (Saline Flush) 2.5 ml FLUSH ASDIRECTED PRN PRN Reason: Keep Vein Open Last Admin: 09/06/17 03:35 Dose: 2.5 ml Sucralfate (Carafate) 1 gm PO Q6H [facility] Last Admin: 09/09/17 10:51 Dose: 1 gm Discontinued Medications Aspirin (Aspirin) 324 mg PO ONETIME ONE Stop: 09/06/17 03:29 Last Admin: 09/06/17 03:35 Dose: 324 mg Aspirin (Aspirin) 324 mg PO ONETIME ONE Stop: 09/06/17 03:31 Last Admin: 09/06/17 03:56 Dose: Not Given Al Hydroxide/Mg Hydroxide 15 ml/ Metoclopramide HCl 5 mg/Lidocaine HCl 5 ml 0 ml PO ONETIME ONE Stop: 09/06/17 05:00 Last Admin: 09/06/17 05:03 Dose: 1 each Fentanyl (Sublimaze) Confirm Administered Dose 100 mcg .ROUTE .STK-MED ONE Stop: 09/07/17 13:52 Hydromorphone HCl (Dilaudid) 1 mg IM ONETIME ONE Stop: 09/06/17 05:45 Last Admin: 09/06/17 05:58 Dose: Not Given Hydromorphone HCl (Dilaudid) 1 mg IV ONETIME ONE Stop: 09/06/17 05:58 Last Admin: 09/06/17 05:58 Dose: 1 mg Hydromorphone HCl (Dilaudid) 0.5 mg IVPUSH Q2H PRN PRN Reason: Pain (severe 7-10) Last Admin: 09/06/17 15:03 Dose: 0.5 mg Hydromorphone HCl (Dilaudid) 1 mg IVPUSH Q2H PRN PRN Reason: Pain Last Admin: 09/08/17 08:41 Dose: 1 mg Hydromorphone HCl (Dilaudid) 1 mg IVPUSH Q3H PRN PRN Reason: Pain Last Admin: 09/09/17 07:38 Dose: 1 mg Sodium Chloride (Normal Saline) 1,000 mls @ 999 mls/hr IV STAT ONE Stop: 09/06/17 05:53 Last Admin: 09/06/17 05:00 Dose: 999 mls/hr Potassium Chloride 40 meq/ (Sodium Chloride) 1,020 mls @ 125 mls/hr IV ASDIRECTED [facility] Stop: 09/06/17 17:25 Last Admin: 09/06/17 11:26 Dose: Not Given Ciprofloxacin/Dextrose 400 mg/ (Premix) 200 mls @ 200 mls/hr IV Q12H [facility] Last Admin: 09/08/17 08:49 Dose: 200 mls/hr Metronidazole 500 mg/ Premix 100 mls @ 100 mls/hr IV QID [facility] Last Admin: 09/08/17 11:46 Dose: 100 mls/hr Potassium Chloride/Sodium Chloride (Normal Saline With 40 Meq Kcl) 1,000 mls @ 125 mls/hr IV ASDIRECTED [facility] Stop: 09/06/17 17:14 Last Admin: 09/06/17 11:27 Dose: Not Given Potassium Chloride/Sodium Chloride (Normal Saline With 40 Meq Kcl) 1,000 mls @ 125 mls/hr IV ASDIRECTED [facility] Stop: 09/06/17 17:44 Last Admin: 09/06/17 10:30 Dose: 125 mls/hr Acetaminophen (Ofirmev) Confirm Administered Dose 100 mls @ as directed IV .STK- MED ONE Stop: 09/07/17 14:25 Iopamidol (Isovue Multipack-370 (76%)) 120 ml IVPUSH ONETIME STA Stop: 09/06/17 06:11 Last Admin: 09/06/17 06:14 Dose: 120 ml Midazolam HCl (Versed 1 Mg/Ml) Confirm Administered Dose 2 mg .ROUTE .STK-MED ONE Stop: 09/07/17 13:52 Morphine Sulfate (Morphine) 2 mg IVPUSH ONETIME ONE Stop: 09/06/17 03:45 Last Admin: 09/06/17 04:00 Dose: 2 mg Morphine Sulfate (Morphine) 2 mg IVPUSH ONETIME ONE Stop: 09/06/17 04:44 Last Admin: 09/06/17 04:47 Dose: 2 mg Morphine Sulfate (Morphine) 4 mg IVPUSH Q2H PRN PRN Reason: Pain Last Admin: 09/06/17 06:43 Dose: 4 mg Morphine Sulfate (Morphine) 4 mg IVPUSH Q2H PRN PRN Reason: Pain Nitroglycerin (Nitrostat) 0.4 mg SL Q5M PRN PRN Reason: Chest Pain Ondansetron HCl (Zofran) 4 mg IVPUSH ONETIME ONE Stop: 09/06/17 03:45 Last Admin: 09/06/17 03:58 Dose: 4 mg Pantoprazole Sodium (Protonix Iv) 80 mg IVPUSH .BOLUS ONE Stop: 09/06/17 03:27 Last Admin: 09/06/17 03:35 Dose: 80 mg Pantoprazole Sodium (Protonix Iv) 40 mg IVPUSH BID [facility] Last Admin: 09/06/17 10:01 Dose: 40 mg Potassium Chloride (Klor-Con M20) 40 meq PO ONETIME ONE Stop: 09/08/17 08:05 Last Admin: 09/08/17 08:36 Dose: 40 meq Potassium Chloride (Klor-Con M20) 40 meq PO ONETIME ONE Stop: 09/09/17 08:12 Last Admin: 09/09/17 08:34 Dose: 40 meq Propofol (Diprivan 20 Ml) Confirm Administered Dose 200 mg .ROUTE .STK-MED ONE Stop: 09/07/17 13:53 - Exam Quality Assessment: Supplemental Oxygen General: Alert, Oriented, Cooperative, No Acute Distress HEENT: Pupils Equal, Pupils Reactive, EOMI. No: Scleral Icterus Neck: Supple Lungs: Clear to Auscultation, Normal Respiratory Effort Cardiovascular: Regular Rate, Regular Rhythm, No Murmurs. No: Tachycardia GI/Abdominal Exam: Normal Bowel Sounds, Soft, Non-Tender, No Distention, No Mass. No: Guarding, Rigid, Rebound (Male) Exam: No Hernia Back Exam: Normal Inspection Extremities: Normal Inspection Skin: Warm, Dry, Intact Neurological: No New Focal Deficit Psy/Mental Status: Alert, Normal Affect, Normal Mood Consult PN Assessment/Plan Procedures: Procedures ARTHROSCOP ROTATOR CUFF REPR (07/29/17) MRI JOINT UPR EXTREM W/O DYE (06/02/17) SHOULDER ARTHROSCOPY/SURGERY (07/29/17) TISSUE EXAM BY PATHOLOGIST (07/29/17) X-RAY EXAM OF SHOULDER (06/18/17) (1) Cholelithiasis SNOMED Code(s): 556949856 Code(s): K80.20 - CALCULUS OF GALLBLADDER W/O CHOLECYSTITIS W/O OBSTRUCTION Priority: Medium Current Visit: Yes Qualifiers: Cholelithiasis location: gallbladder Cholecystitis presence: without cholecystitis Biliary obstruction: without biliary obstruction Qualified Code(s): K80.20 - Calculus of gallbladder without cholecystitis without obstruction (2) Epigastric pain SNOMED Code(s): 55182488 Code(s): R10.13 - EPIGASTRIC PAIN Priority: High Current Visit: Yes (3) Abdominal pain SNOMED Code(s): 08963689 Code(s): R10.9 - UNSPECIFIED ABDOMINAL PAIN Priority: High Current Visit : Yes Qualifiers: Abdominal location: epigastric Qualified Code(s): R10.13 - Epigastric pain (4) Elevated liver enzymes SNOMED Code(s): 811971727 Code(s): R74.8 - ABNORMAL LEVELS OF OTHER SERUM ENZYMES Priority: Medium Current Visit: Yes (5) Cholecystitis SNOMED Code(s): 61994602 Code(s): K81.9 - CHOLECYSTITIS, UNSPECIFIED Priority: Medium Current Visit: Yes (6) Leukocytosis SNOMED Code(s): 324018974 Code(s): D72.829 - ELEVATED WHITE BLOOD CELL COUNT, UNSPECIFIED Priority: Medium Current Visit: Yes Qualifiers: Leukocytosis type: bandemia Qualified Code(s): D72.825 - Bandemia Problem List Initiated/Reviewed/Updated: Yes Plan: Overall the patient appears to be doing better. His pain is much less intense. His white count has decreased from 23,000-17,000 following the switch to Zosyn. Overall he is improved. I would like to keep him in the hospital until his white count is down even more. I think he will require oral antibiotics upon discharge. I would like to try and cool him down for at least 6 weeks and then entertain the possibility of laparoscopic or possible open cholecystectomy.
[2017-09-09] MEDS ORDERED: Temazepam 15 MG Cap PO PRN (14:39)
[2017-09-09] MEDS ORDERED: Sodium Chloride 0.9% 100 ML ONE (17:01)
[2017-09-10] MEDS: Heparin Sodium 5,000 Units/ML Vial SUBCUT SCH ×2 (01:32→09:53)
[2017-09-10] MEDS: Sucralfate Suspension 1 GM/10 ML Cup PO SCH ×2 (03:53→09:52)
[2017-09-10] MEDS: Piperacillin/Tazobactam 4.5 GM in Sodium Chloride 0.9% 100 ML IV SCH ×2 (03:53→09:53)
[2017-09-10 05:56] LABS: CHLORIDE,CL 98 mmol/L (98-110); SODIUM,NA 137 mmol/L (136-146)
[2017-09-10] MEDS ORDERED: Potassium Chloride 20 MEQ Tab.ER PO SCH (09:00)
[2017-09-10] MEDS: Hydrochlorothiazide 25 MG Tab PO SCH (09:51)
[2017-09-10] MEDS: Pantoprazole 40 MG Vial IVPUSH SCH (09:51)
[2017-09-10] MEDS: Losartan 50 MG Tab PO SCH (09:52)
[2017-09-10] MEDS: amLODIPine 5 MG Tab PO SCH (09:52)
[2017-09-10] MEDS: Atenolol 50 MG Tab PO SCH (09:52)
--- NOTE | 2017-09-10 11:32 | PCM.DCSUM1 ---
Discharge Summary - Hospital Course Free Text/Narrative:: Admission date: September 06, 2017 Discharge date: September 10, 2017 Admission diagnosis: #1. Gastritis #2. Cholelithiasis #3. Hypokalemia #4. Elevated LFT #5. Leukocytosis #6. History of hypertension Discharge diagnosis: #1. Cholecystitis #2. Hypokalemia #3. History of hypertension #4. Leukocytosis improving Consults: Dr. Rodriguez, surgery Intervention: EGD with biopsy revealing no ulceration but significant gastritis Hospital course: This is a 62-year-old male with past medical history of hypertension that presented to the emergency department with a chief complaint of epigastric pain worked up for gastritis. Abdominal CT showed possible cholelithiasis as well. Surgery was in consult did who then did a EGD with biopsy which revealed no ulcerations but significant gastritis. The patient had persistent leukocytosis which is present on presentation to the emergency department and was started on ciprofloxacin and Flagyl. Given the right upper quadrant tenderness and the CT with an equivocal findings, a repeat right upper quadrant ultrasound was ordered which showed possible cholecystitis. Antibiotic coverage was then changed to IV Zosyn. The patient's leukocytosis and pain responded well to the change in antibiotics. The patient was then discharged on Augmentin and Flagyl for the next week. Patient is also found to be hypokalemic. He was discharged on a seven-day supply of 20 mEq of potassium chloride daily. He is to follow-up with his primary care provider along with Dr. Rodriguez in 4-6 weeks for a possible cholecystectomy. At the time of discharge, the patient denied having any abdominal pain, fevers chills nausea vomiting. - Discharge Data Discharge Date: 09/10/17 Discharge Disposition: Home, Self-Care 01 Condition: Fair - Patient Summary/Data Operative Procedure(s) Performed: EGD w/ biopsy Consults: Consultations 09/09/17 10:06 Consult to Physical Therapy [PT Evaluation and Treatment] [CONS] Routine - Patient Instructions Activity: As Tolerated Notify Provider of: Fever, Increased Pain Other/Special Instructions: low fat diet - Discharge Plan Prescriptions/Med Rec: Amoxicillin/Potassium Clav [Augmentin 875-125 Tablet] 1 each PO Q12H 7 Days #14 tablet metroNIDAZOLE [Flagyl] 500 mg PO Q8H 7 Days #21 tab Potassium Chloride 20 meq PO DAILY #7 tablet.er Home Medications: Home Meds Atenolol 50 mg PO DAILY 07/28/17 [History] Hydrochlorothiazide 50 mg PO DAILY 07/28/17 [History] Losartan [Cozaar] 100 mg PO DAILY 07/28/17 [History] Milk Thistle 150 mg PO DAILY 07/28/17 [History] Multivitamin [Multi-Vitamin Daily] 1 tab PO DAILY 07/28/17 [History] amLODIPine [Norvasc] 10 mg PO DAILY 07/28/17 [History] Amoxicillin/Potassium Clav [Augmentin 875-125 Tablet] 1 each PO Q12H 7 Days #14 tablet 09/10/17 [Rx] Potassium Chloride 20 meq PO DAILY #7 tablet.er 09/10/17 [Rx] metroNIDAZOLE [Flagyl] 500 mg PO Q8H 7 Days #21 tab 09/10/17 [Rx] Patient Handouts: Gastritis, Adult, [id number], Amoxicillin; Clavulanic Acid tablets, Cholelithiasis, [id number], Cholecystitis, [id number], Metronidazole tablets or capsules Referrals: [facility] [Outside] Michele Rodriguez MD [Physician] - 10/20/17 10:30 am (4-6 weeks) Jose Alberto Galeano MD [Physician] - 09/18/17 10:30 am - Discharge Summary/Plan Comment Discharge Summary/Plan Comment: Admission date: September 06, 2017 Discharge date: September 10, 2017 Admission diagnosis: #1. Gastritis #2. Cholelithiasis #3. Hypokalemia #4. Elevated LFT #5. Leukocytosis #6. History of hypertension Discharge diagnosis: #1. Cholecystitis #2. Hypokalemia #3. History of hypertension #4. Leukocytosis improving Consults: Dr. Rodriguez, surgery Intervention: EGD with biopsy revealing no ulceration but significant gastritis Hospital course: This is a 62-year-old male with past medical history of hypertension that presented to the emergency department with a chief complaint of epigastric pain worked up for gastritis. Abdominal CT showed possible cholelithiasis as well. Surgery was in consult did who then did a EGD with biopsy which revealed no ulcerations but significant gastritis. The patient had persistent leukocytosis which is present on presentation to the emergency department and was started on ciprofloxacin and Flagyl. Given the right upper quadrant tenderness and the CT with an equivocal findings, a repeat right upper quadrant ultrasound was ordered which showed possible cholecystitis. Antibiotic coverage was then changed to IV Zosyn. The patient's leukocytosis and pain responded well to the change in antibiotics. The patient was then discharged on Augmentin and Flagyl for the next week. Patient is also found to be hypokalemic. He was discharged on a seven-day supply of 20 mEq of potassium chloride daily. He is to follow-up with his primary care provider along with Dr. Rodriguez in 4-6 weeks for a possible cholecystectomy. At the time of discharge, the patient denied having any abdominal pain, fevers chills nausea vomiting. He was also advised to follow a low-fat diet. Patient was advised to return to seek medical attention symptoms returned. - Patient Data Vitals - Most Recent: Last Vital Signs Temp 36.8 C 09/10/17 08:00 Pulse 76 09/10/17 09:52 Resp 18 09/10/17 08:00 BP 157/71 H 09/10/17 09:52 Pulse Ox 91 L 09/10/17 08:00 Weight - Most Recent: 99.79 kg I&O - Last 24 hours: Intake & Output 09/09/17 09/10/17 09/10/17 22:59 06:59 14:59 Intake Total 1120 800 Output Total 1150 600 Balance -30 200 Lab Results - Last 24 hrs: Laboratory Results - last 24 hr 09/10/17 09/10/17 Range/Units 04:57 04:57 WBC 13.74 H (4.0-11.0) K/uL RBC 3.99 L (4.50-5.90) M/uL Hgb 12.4 L (13.0-17.0) g/dL Hct 35.9 L (38.0-50.0) % MCV 90.0 (80.0-98.0) fL MCH 31.1 (27.0-32.0) pg MCHC 34.5 (31.0-37.0) g/dL RDW Std Deviation 41.6 (28.0-62.0) fl RDW Coeff of Randall 13 (11.0-15.0) % Plt Count 360 (150-400) K/uL MPV 9.00 (7.40-12.00) fL Add Manual Diff YES Neutrophils % (Manual) 69 (48.0-80.0) % Band Neutrophils % 2 % Lymphocytes % (Manual) 15 L (16.0-40.0) % Monocytes % (Manual) 6 (0.0-15.0) % Eosinophils % (Manual) 6 (0.0-7.0) % Metamyelocytes % 1 % Myelocytes % 1 % Nucleated RBC % 0.0 /100WBC Absolute Seg Neuts 9.5 H (1.4-5.7) Band Neutrophils # 0.3 Lymphocytes # (Manual) 2.1 (0.6-2.4) Monocytes # (Manual) 0.8 (0.0-0.8) Eosinophils # (Manual) 0.8 H (0.0-0.7) Absolute Metamyelocyte 0.1 Absolute Myelocytes 0.1 Nucleated RBCs # 0 K/uL Sodium 137 (136-146) mmol/L Potassium 3.0 L (3.5-5.1) mmol/L Chloride 98 (98-110) mmol/L Carbon Dioxide 29 (21-31) mmol/L BUN 13 (6.0-23.0) mg/dL Creatinine 0.6 (0.6-1.5) mg/dL Est Cr Clr Drug Dosing 132.47 mL/min Estimated GFR (MDRD) > 60.0 ml/min Glucose 96 (60-110) mg/dL Calcium 8.6 L (8.8-10.8) mg/dL Total Bilirubin 0.5 (0.1-1.5) mg/dL AST 39 (5-40) IU/L ALT 53 (8-54) IU/L Alkaline Phosphatase 123 (40-150) Total Protein 6.4 (6.0-8.0) g/dL Albumin 3.6 (3.4-4.8) g/dL Globulin 2.8 (2.0-3.5) g/dL Albumin/Globulin Ratio 1.3 (1.3-2.8) SINA Results - Last 24 hrs: Microbiology 09/09/17 09:20 Stool Occult Blood (SINA) - Final Stool / Feces POSITIVE OCCULT BLOOD Med Orders - Current: Current Medications Acetaminophen (Tylenol) 650 mg PO Q4H PRN PRN Reason: Pain Last Admin: 09/08/17 03:34 Dose: 650 mg Amlodipine Besylate (Norvasc) 10 mg PO DAILY [facility] Last Admin: 09/10/17 09:52 Dose: 10 mg Atenolol (Tenormin) 50 mg PO DAILY [facility] Last Admin: 09/10/17 09:52 Dose: 50 mg Heparin Sodium (Porcine) (Heparin Sodium) 5,000 units SUBCUT Q8H [facility] Last Admin: 09/10/17 09:53 Dose: Not Given Hydrochlorothiazide (Hydrochlorothiazide) 50 mg PO DAILY [facility] Last Admin: 09/10/17 09:51 Dose: 50 mg Piperacillin Sod/Tazobactam (Sod 4.5 gm/ Sodium Chloride) 100 mls @ 100 mls/hr IV Q6H [facility] Last Admin: 09/10/17 09:53 Dose: 100 mls/hr Losartan Potassium (Cozaar) 100 mg PO DAILY [facility] Last Admin: 09/10/17 09:52 Dose: 100 mg Nitroglycerin (Nitrostat) 0.4 mg SL Q5M PRN PRN Reason: Chest Pain Last Admin: 09/06/17 03:39 Dose: 0.4 mg Ondansetron HCl (Zofran) 4 mg IVPUSH Q4H PRN PRN Reason: Nausea Oxycodone HCl (Oxycodone) 10 mg PO Q6H PRN PRN Reason: Pain Last Admin: 09/09/17 17:28 Dose: 10 mg Pantoprazole Sodium (Protonix Iv) 80 mg IVPUSH BID [facility] Last Admin: 09/10/17 09:51 Dose: 80 mg Potassium Chloride (Klor-Con M20) 40 meq PO BID [facility] Stop: 09/11/17 09:00 Last Admin: 09/10/17 09:52 Dose: 40 meq Sodium Chloride (Saline Flush) 10 ml FLUSH ASDIRECTED PRN PRN Reason: Keep Vein Open Last Admin: 09/06/17 03:35 Dose: 10 ml Sodium Chloride (Saline Flush) 2.5 ml FLUSH ASDIRECTED PRN PRN Reason: Keep Vein Open Last Admin: 09/06/17 03:35 Dose: 2.5 ml Sucralfate (Carafate) 1 gm PO Q6H [facility] Last Admin: 09/10/17 09:52 Dose: 1 gm Temazepam (Restoril) 15 mg PO BEDTIME PRN PRN Reason: Insomnia Last Admin: 09/09/17 20:34 Dose: 15 mg Discontinued Medications Aspirin (Aspirin) 324 mg PO ONETIME ONE Stop: 09/06/17 03:29 Last Admin: 09/06/17 03:35 Dose: 324 mg Aspirin (Aspirin) 324 mg PO ONETIME ONE Stop: 09/06/17 03:31 Last Admin: 09/06/17 03:56 Dose: Not Given Al Hydroxide/Mg Hydroxide 15 ml/ Metoclopramide HCl 5 mg/Lidocaine HCl 5 ml 0 ml PO ONETIME ONE Stop: 09/06/17 05:00 Last Admin: 09/06/17 05:03 Dose: 1 each Fentanyl (Sublimaze) Confirm Administered Dose 100 mcg .ROUTE .STK-MED ONE Stop: 09/07/17 13:52 Hydromorphone HCl (Dilaudid) 1 mg IM ONETIME ONE Stop: 09/06/17 05:45 Last Admin: 09/06/17 05:58 Dose: Not Given Hydromorphone HCl (Dilaudid) 1 mg IV ONETIME ONE Stop: 09/06/17 05:58 Last Admin: 09/06/17 05:58 Dose: 1 mg Hydromorphone HCl (Dilaudid) 0.5 mg IVPUSH Q2H PRN PRN Reason: Pain (severe 7-10) Last Admin: 09/06/17 15:03 Dose: 0.5 mg Hydromorphone HCl (Dilaudid) 1 mg IVPUSH Q2H PRN PRN Reason: Pain Last Admin: 09/08/17 08:41 Dose: 1 mg Hydromorphone HCl (Dilaudid) 1 mg IVPUSH Q3H PRN PRN Reason: Pain Last Admin: 09/09/17 07:38 Dose: 1 mg Sodium Chloride (Normal Saline) 1,000 mls @ 999 mls/hr IV STAT ONE Stop: 09/06/17 05:53 Last Admin: 09/06/17 05:00 Dose: 999 mls/hr Potassium Chloride 40 meq/ (Sodium Chloride) 1,020 mls @ 125 mls/hr IV ASDIRECTED [facility] Stop: 09/06/17 17:25 Last Admin: 09/06/17 11:26 Dose: Not Given Ciprofloxacin/Dextrose 400 mg/ (Premix) 200 mls @ 200 mls/hr IV Q12H [facility] Last Admin: 09/08/17 08:49 Dose: 200 mls/hr Metronidazole 500 mg/ Premix 100 mls @ 100 mls/hr IV QID [facility] Last Admin: 09/08/17 11:46 Dose: 100 mls/hr Potassium Chloride/Sodium Chloride (Normal Saline With 40 Meq Kcl) 1,000 mls @ 125 mls/hr IV ASDIRECTED [facility] Stop: 09/06/17 17:14 Last Admin: 09/06/17 11:27 Dose: Not Given Potassium Chloride/Sodium Chloride (Normal Saline With 40 Meq Kcl) 1,000 mls @ 125 mls/hr IV ASDIRECTED [facility] Stop: 09/06/17 17:44 Last Admin: 09/06/17 10:30 Dose: 125 mls/hr Sodium Chloride (Normal Saline) 1,000 mls @ 125 mls/hr IV ASDIRECTED [facility] Last Admin: 09/09/17 07:12 Dose: 125 mls/hr Acetaminophen (Ofirmev) Confirm Administered Dose 100 mls @ as directed IV .STK- MED ONE Stop: 09/07/17 14:25 Sodium Chloride (Normal Saline) Confirm Administered Dose 100 mls @ as directed .ROUTE .STK-MED ONE Stop: 09/09/17 17:02 Last Admin: 09/09/17 17:33 Dose: Not Given Iopamidol (Isovue Multipack-370 (76%)) 120 ml IVPUSH ONETIME STA Stop: 09/06/17 06:11 Last Admin: 09/06/17 06:14 Dose: 120 ml Midazolam HCl (Versed 1 Mg/Ml) Confirm Administered Dose 2 mg .ROUTE .STK-MED ONE Stop: 09/07/17 13:52 Morphine Sulfate (Morphine) 2 mg IVPUSH ONETIME ONE Stop: 09/06/17 03:45 Last Admin: 09/06/17 04:00 Dose: 2 mg Morphine Sulfate (Morphine) 2 mg IVPUSH ONETIME ONE Stop: 09/06/17 04:44 Last Admin: 09/06/17 04:47 Dose: 2 mg Morphine Sulfate (Morphine) 4 mg IVPUSH Q2H PRN PRN Reason: Pain Last Admin: 09/06/17 06:43 Dose: 4 mg Morphine Sulfate (Morphine) 4 mg IVPUSH Q2H PRN PRN Reason: Pain Nitroglycerin (Nitrostat) 0.4 mg SL Q5M PRN PRN Reason: Chest Pain Ondansetron HCl (Zofran) 4 mg IVPUSH ONETIME ONE Stop: 09/06/17 03:45 Last Admin: 09/06/17 03:58 Dose: 4 mg Pantoprazole Sodium (Protonix Iv) 80 mg IVPUSH .BOLUS ONE Stop: 09/06/17 03:27 Last Admin: 09/06/17 03:35 Dose: 80 mg Pantoprazole Sodium (Protonix Iv) 40 mg IVPUSH BID JOSE Last Admin: 09/06/17 10:01 Dose: 40 mg Potassium Chloride (Klor-Con M20) 40 meq PO ONETIME ONE Stop: 09/08/17 08:05 Last Admin: 09/08/17 08:36 Dose: 40 meq Potassium Chloride (Klor-Con M20) 40 meq PO ONETIME ONE Stop: 09/09/17 08:12 Last Admin: 09/09/17 08:34 Dose: 40 meq Propofol (Diprivan 20 Ml) Confirm Administered Dose 200 mg .ROUTE .STK-MED ONE Stop: 09/07/17 13:53 *Q Meaningful Use (DIS) - VTE *Q VTE Criteria *Q: - Stroke *Q Stroke Criteria *Q: - AMI *Q AMI Criteria *Q:
--- NOTE | 2017-09-10 15:11 | PCM.CONSN ---
- General Info Date of Service: 09/10/17 Subjective Update: Patient was seen on rounds earlier this morning. He was feeling much better. He had slept well last night. He denied any fever or chills. No nausea or vomiting. Denied any abdominal pain. Functional Status: Reports: Pain Controlled, Tolerating Diet, Ambulating, Urinating - Review of Systems General: Denies: Fever, Weakness, Fatigue HEENT: Reports: No Symptoms Pulmonary: Reports: No Symptoms Cardiovascular: Reports: No Symptoms Gastrointestinal: Denies: Abdominal Pain, Diarrhea, Nausea, Vomiting Genitourinary: Reports: No Symptoms Musculoskeletal: Reports: No Symptoms Skin: Reports: No Symptoms Neurological: Reports: No Symptoms Psychiatric: Reports: No Symptoms - Patient Data Vitals - Most Recent: Last Vital Signs Temp 98.2 F 09/10/17 08:00 Pulse 76 09/10/17 09:52 Resp 18 09/10/17 08:00 BP 157/71 H 09/10/17 09:52 Pulse Ox 91 L 09/10/17 08:00 Weight - Most Recent: 220 lb I&O - Last 24 Hours: Intake & Output 09/10/17 09/10/17 09/10/17 03:59 11:59 19:59 Intake Total 100 700 Output Total 600 Balance 100 100 Lab Results Last 24 Hours: Laboratory Results - last 24 hr 09/10/17 09/10/17 Range/Units 04:57 04:57 WBC 13.74 H (4.0-11.0) K/uL RBC 3.99 L (4.50-5.90) M/uL Hgb 12.4 L (13.0-17.0) g/dL Hct 35.9 L (38.0-50.0) % MCV 90.0 (80.0-98.0) fL MCH 31.1 (27.0-32.0) pg MCHC 34.5 (31.0-37.0) g/dL RDW Std Deviation 41.6 (28.0-62.0) fl RDW Coeff of Randall 13 (11.0-15.0) % Plt Count 360 (150-400) K/uL MPV 9.00 (7.40-12.00) fL Add Manual Diff YES Neutrophils % (Manual) 69 (48.0-80.0) % Band Neutrophils % 2 % Lymphocytes % (Manual) 15 L (16.0-40.0) % Monocytes % (Manual) 6 (0.0-15.0) % Eosinophils % (Manual) 6 (0.0-7.0) % Metamyelocytes % 1 % Myelocytes % 1 % Nucleated RBC % 0.0 /100WBC Absolute Seg Neuts 9.5 H (1.4-5.7) Band Neutrophils # 0.3 Lymphocytes # (Manual) 2.1 (0.6-2.4) Monocytes # (Manual) 0.8 (0.0-0.8) Eosinophils # (Manual) 0.8 H (0.0-0.7) Absolute Metamyelocyte 0.1 Absolute Myelocytes 0.1 Nucleated RBCs # 0 K/uL Sodium 137 (136-146) mmol/L Potassium 3.0 L (3.5-5.1) mmol/L Chloride 98 (98-110) mmol/L Carbon Dioxide 29 (21-31) mmol/L BUN 13 (6.0-23.0) mg/dL Creatinine 0.6 (0.6-1.5) mg/dL Est Cr Clr Drug Dosing 132.47 mL/min Estimated GFR (MDRD) > 60.0 ml/min Glucose 96 (60-110) mg/dL Calcium 8.6 L (8.8-10.8) mg/dL Total Bilirubin 0.5 (0.1-1.5) mg/dL AST 39 (5-40) IU/L ALT 53 (8-54) IU/L Alkaline Phosphatase 123 (40-150) Total Protein 6.4 (6.0-8.0) g/dL Albumin 3.6 (3.4-4.8) g/dL Globulin 2.8 (2.0-3.5) g/dL Albumin/Globulin Ratio 1.3 (1.3-2.8) Des Results Last 24 Hours: Microbiology 09/09/17 09:20 Stool Occult Blood (DES) - Final Stool / Feces POSITIVE OCCULT BLOOD Med Orders - Current: Current Medications Discontinued Medications Acetaminophen (Tylenol) 650 mg PO Q4H PRN PRN Reason: Pain Last Admin: 09/08/17 03:34 Dose: 650 mg Amlodipine Besylate (Norvasc) 10 mg PO DAILY JOSE Last Admin: 09/10/17 09:52 Dose: 10 mg Aspirin (Aspirin) 324 mg PO ONETIME ONE Stop: 09/06/17 03:29 Last Admin: 09/06/17 03:35 Dose: 324 mg Aspirin (Aspirin) 324 mg PO ONETIME ONE Stop: 09/06/17 03:31 Last Admin: 09/06/17 03:56 Dose: Not Given Atenolol (Tenormin) 50 mg PO DAILY [facility] Last Admin: 09/10/17 09:52 Dose: 50 mg Al Hydroxide/Mg Hydroxide 15 ml/ Metoclopramide HCl 5 mg/Lidocaine HCl 5 ml 0 ml PO ONETIME ONE Stop: 09/06/17 05:00 Last Admin: 09/06/17 05:03 Dose: 1 each Fentanyl (Sublimaze) Confirm Administered Dose 100 mcg .ROUTE .STK-MED ONE Stop: 09/07/17 13:52 Heparin Sodium (Porcine) (Heparin Sodium) 5,000 units SUBCUT Q8H [facility] Last Admin: 09/10/17 09:53 Dose: Not Given Hydrochlorothiazide (Hydrochlorothiazide) 50 mg PO DAILY [facility] Last Admin: 09/10/17 09:51 Dose: 50 mg Hydromorphone HCl (Dilaudid) 1 mg IM ONETIME ONE Stop: 09/06/17 05:45 Last Admin: 09/06/17 05:58 Dose: Not Given Hydromorphone HCl (Dilaudid) 1 mg IV ONETIME ONE Stop: 09/06/17 05:58 Last Admin: 09/06/17 05:58 Dose: 1 mg Hydromorphone HCl (Dilaudid) 0.5 mg IVPUSH Q2H PRN PRN Reason: Pain (severe 7-10) Last Admin: 09/06/17 15:03 Dose: 0.5 mg Hydromorphone HCl (Dilaudid) 1 mg IVPUSH Q2H PRN PRN Reason: Pain Last Admin: 09/08/17 08:41 Dose: 1 mg Hydromorphone HCl (Dilaudid) 1 mg IVPUSH Q3H PRN PRN Reason: Pain Last Admin: 09/09/17 07:38 Dose: 1 mg Sodium Chloride (Normal Saline) 1,000 mls @ 999 mls/hr IV STAT ONE Stop: 09/06/17 05:53 Last Admin: 09/06/17 05:00 Dose: 999 mls/hr Potassium Chloride 40 meq/ (Sodium Chloride) 1,020 mls @ 125 mls/hr IV ASDIRECTED [facility] Stop: 09/06/17 17:25 Last Admin: 09/06/17 11:26 Dose: Not Given Ciprofloxacin/Dextrose 400 mg/ (Premix) 200 mls @ 200 mls/hr IV Q12H [facility] Last Admin: 09/08/17 08:49 Dose: 200 mls/hr Metronidazole 500 mg/ Premix 100 mls @ 100 mls/hr IV QID [facility] Last Admin: 09/08/17 11:46 Dose: 100 mls/hr Potassium Chloride/Sodium Chloride (Normal Saline With 40 Meq Kcl) 1,000 mls @ 125 mls/hr IV ASDIRECTED [facility] Stop: 09/06/17 17:14 Last Admin: 09/06/17 11:27 Dose: Not Given Potassium Chloride/Sodium Chloride (Normal Saline With 40 Meq Kcl) 1,000 mls @ 125 mls/hr IV ASDIRECTED [facility] Stop: 09/06/17 17:44 Last Admin: 09/06/17 10:30 Dose: 125 mls/hr Sodium Chloride (Normal Saline) 1,000 mls @ 125 mls/hr IV ASDIRECTED [facility] Last Admin: 09/09/17 07:12 Dose: 125 mls/hr Acetaminophen (Ofirmev) Confirm Administered Dose 100 mls @ as directed IV .STK- MED ONE Stop: 09/07/17 14:25 Piperacillin Sod/Tazobactam (Sod 4.5 gm/ Sodium Chloride) 100 mls @ 100 mls/hr IV Q6H [facility] Last Admin: 09/10/17 09:53 Dose: 100 mls/hr Sodium Chloride (Normal Saline) Confirm Administered Dose 100 mls @ as directed .ROUTE .STK-MED ONE Stop: 09/09/17 17:02 Last Admin: 09/09/17 17:33 Dose: Not Given Iopamidol (Isovue Multipack-370 (76%)) 120 ml IVPUSH ONETIME STA Stop: 09/06/17 06:11 Last Admin: 09/06/17 06:14 Dose: 120 ml Losartan Potassium (Cozaar) 100 mg PO DAILY [facility] Last Admin: 09/10/17 09:52 Dose: 100 mg Midazolam HCl (Versed 1 Mg/Ml) Confirm Administered Dose 2 mg .ROUTE .STK-MED ONE Stop: 09/07/17 13:52 Morphine Sulfate (Morphine) 2 mg IVPUSH ONETIME ONE Stop: 09/06/17 03:45 Last Admin: 09/06/17 04:00 Dose: 2 mg Morphine Sulfate (Morphine) 2 mg IVPUSH ONETIME ONE Stop: 09/06/17 04:44 Last Admin: 09/06/17 04:47 Dose: 2 mg Morphine Sulfate (Morphine) 4 mg IVPUSH Q2H PRN PRN Reason: Pain Last Admin: 09/06/17 06:43 Dose: 4 mg Morphine Sulfate (Morphine) 4 mg IVPUSH Q2H PRN PRN Reason: Pain Nitroglycerin (Nitrostat) 0.4 mg SL Q5M PRN PRN Reason: Chest Pain Last Admin: 09/06/17 03:39 Dose: 0.4 mg Nitroglycerin (Nitrostat) 0.4 mg SL Q5M PRN PRN Reason: Chest Pain Ondansetron HCl (Zofran) 4 mg IVPUSH ONETIME ONE Stop: 09/06/17 03:45 Last Admin: 09/06/17 03:58 Dose: 4 mg Ondansetron HCl (Zofran) 4 mg IVPUSH Q4H PRN PRN Reason: Nausea Oxycodone HCl (Oxycodone) 10 mg PO Q6H PRN PRN Reason: Pain Last Admin: 09/09/17 17:28 Dose: 10 mg Pantoprazole Sodium (Protonix Iv) 80 mg IVPUSH .BOLUS ONE Stop: 09/06/17 03:27 Last Admin: 09/06/17 03:35 Dose: 80 mg Pantoprazole Sodium (Protonix Iv) 40 mg IVPUSH BID [facility] Last Admin: 09/06/17 10:01 Dose: 40 mg Pantoprazole Sodium (Protonix Iv) 80 mg IVPUSH BID [facility] Last Admin: 09/10/17 09:51 Dose: 80 mg Potassium Chloride (Klor-Con M20) 40 meq PO ONETIME ONE Stop: 09/08/17 08:05 Last Admin: 09/08/17 08:36 Dose: 40 meq Potassium Chloride (Klor-Con M20) 40 meq PO ONETIME ONE Stop: 09/09/17 08:12 Last Admin: 09/09/17 08:34 Dose: 40 meq Potassium Chloride (Klor-Con M20) 40 meq PO BID JOSE Stop: 09/11/17 09:00 Last Admin: 09/10/17 09:52 Dose: 40 meq Propofol (Diprivan 20 Ml) Confirm Administered Dose 200 mg .ROUTE .STK-MED ONE Stop: 09/07/17 13:53 Sodium Chloride (Saline Flush) 10 ml FLUSH ASDIRECTED PRN PRN Reason: Keep Vein Open Last Admin: 09/06/17 03:35 Dose: 10 ml Sodium Chloride (Saline Flush) 2.5 ml FLUSH ASDIRECTED PRN PRN Reason: Keep Vein Open Last Admin: 09/06/17 03:35 Dose: 2.5 ml Sucralfate (Carafate) 1 gm PO Q6H [facility] Last Admin: 09/10/17 09:52 Dose: 1 gm Temazepam (Restoril) 15 mg PO BEDTIME PRN PRN Reason: Insomnia Last Admin: 09/09/17 20:34 Dose: 15 mg - Exam General: Alert, Oriented, Cooperative, No Acute Distress HEENT: Pupils Equal, Pupils Reactive. No: Scleral Icterus Neck: Supple Lungs: Clear to Auscultation, Normal Respiratory Effort Cardiovascular: Regular Rate, Regular Rhythm GI/Abdominal Exam: Normal Bowel Sounds, Soft, Non-Tender, No Mass. No: Guarding , Rigid, Rebound, Tender (Male) Exam: No Hernia Back Exam: Normal Inspection Extremities: Normal Inspection Skin: Warm, Dry, Intact Neurological: No New Focal Deficit Psy/Mental Status: Alert, Normal Affect, Normal Mood Consult PN Assessment/Plan Procedures: Procedures ARTHROSCOP ROTATOR CUFF REPR (07/29/17) MRI JOINT UPR EXTREM W/O DYE (06/02/17) SHOULDER ARTHROSCOPY/SURGERY (07/29/17) TISSUE EXAM BY PATHOLOGIST (07/29/17) X-RAY EXAM OF SHOULDER (06/18/17) (1) Cholelithiasis SNOMED Code(s): 754417195 Code(s): K80.20 - CALCULUS OF GALLBLADDER W/O CHOLECYSTITIS W/O OBSTRUCTION Priority: Medium Qualifiers: Cholelithiasis location: gallbladder Cholecystitis presence: without cholecystitis Biliary obstruction: without biliary obstruction Qualified Code(s): K80.20 - Calculus of gallbladder without cholecystitis without obstruction (2) Epigastric pain SNOMED Code(s): 03185736 Code(s): R10.13 - EPIGASTRIC PAIN Priority: High (3) Abdominal pain SNOMED Code(s): 31633653 Code(s): R10.9 - UNSPECIFIED ABDOMINAL PAIN Priority: High Qualifiers: Abdominal location: epigastric Qualified Code(s): R10.13 - Epigastric pain (4) Elevated liver enzymes SNOMED Code(s): 958201746 Code(s): R74.8 - ABNORMAL LEVELS OF OTHER SERUM ENZYMES Priority: Medium (5) Cholecystitis SNOMED Code(s): 15232835 Code(s): K81.9 - CHOLECYSTITIS, UNSPECIFIED Priority: Medium (6) Leukocytosis SNOMED Code(s): 346067045 Code(s): D72.829 - ELEVATED WHITE BLOOD CELL COUNT, UNSPECIFIED Priority: Medium Qualifiers: Leukocytosis type: bandemia Qualified Code(s): D72.825 - Bandemia Problem List Initiated/Reviewed/Updated: Yes Plan: White count is down to 13,000 today. Overall he is markedly improved. I think it is safe to discharge him with a 7 day course of oral antibiotics. I would like to see him back in 6 weeks for consideration for an elective cholecystectomy.
== END 2017-09-10 12:10 | disposition home or self-care (01) | DRG 392 ==
LOC: MW.ED 03:18 → MW.MS 05:44 → OBSVTOIN 09-08 10:10 → MW.MS 09-08 16:22
PROVIDERS: ADMIT Family Medicine; ATTEND Family Medicine
PROC: 0DB68ZX Excision of Stomach, Via Natural or Artificial Opening Endoscopic, Diagnostic (ICD-10-PCS; principal; 2017-09-08)
DX: K29.70 Gastritis, unspecified, without bleeding (principal); K80.10 Calculus of gallbladder with chronic cholecystitis without obstruction; E87.6 Hypokalemia; D72.829 Elevated white blood cell count, unspecified; R74.8 Abnormal levels of other serum enzymes; I10 Essential (primary) hypertension; Z79.899 Other long term (current) drug therapy; Z87.891 Personal history of nicotine dependence
CPT/HCPCS: 00731; 36415; 71045; 71045-26; 71260; 71260-26; 74177; 74177-26; 76705; 76705-26; 80053; 81001; 82272; 82553; 83605; 83690; 83880; 84443; 84484; 85025; 85610; 87040; 87086; 87804; 88305; 88312; 93005; 96361; 96365; 96366; 96367; 96372; 96374; 96375; 96376; 99285-25; A9270-GY; C9113; G0378; J0744; J1170; J1644; J2250; J2270; J2405; J2543; J2704; J3010; J3480; J7030; J7040; Q9967